=== PATIENT | female | born 1950 | race Hispanic/Latino ===

== ENCOUNTER 2018-06-28 12:36 | Emergency (ER) | payer OTHER ==
--- OUTSIDE RECORDS SUMMARY | 2018-06-28 12:38 | XMS REPORT | Clinical Summary ---
:1950 Author Organization [facility] Address [address] [place] [id number] Care Team Providers Name Role Phone LamoureShalonda ruiz Blank ACADEMIC SUPPORT ASSISTANT-Deja Primary Care Provider Allergies No Known Allergies Current Medications Prescription Sig. Disp. Refills Start End Status Date Date amLODIPine (NORVASC) amlodipine 10 mg Active 10 mg tablet tablet COMBIGAN 0.2-0.5 % 06/22/20 Active ophthalmic solution 18 buPROPion XL 06/21/20 Active (WELLBUTRIN XL) 150 MG 18 24 hr tablet hydroCHLOROthiazide hydrochlorothiazide 25 mg tablet Active (HYDRODIURIL) 25 MG TAKE ONE TABLET BY MOUTH DAILY tablet gabapentin (NEURONTIN) gabapentin 300 mg Active 300 mg capsule capsule furosemide (LASIX) 40 furosemide 40 mg Active mg tablet tablet simvastatin (ZOCOR) 20 simvastatin 20 mg tablet Active MG tablet TAKE 1 TABLET AT BEDTIME irbesartan (AVAPRO) irbesartan 300 mg tablet Active 300 MG tablet TAKE 1 BY MOUTH EVERY DAY metFORMIN XR 06/23/20 Active (GLUCOPHAGE-XR) 500 mg 18 24 hr tablet insulin 70/30 NPH and Novolin 70/30 U-100 Active regular human (NovoLIN Insulin 100 unit/mL 70/30 U-100 Insulin) subcutaneous 100 unit/mL (70-30) suspension injection travoprost (TRAVATAN Travatan Z 0.004 % eye Active Z) 0.004 % drops aspirin (ECOTRIN) 81 Take 81 mg by mouth Active MG enteric coated daily. tablet TURMERIC ROOT EXTRACT Take by mouth. Active ORAL amLODIPine (NORVASC) amlodipine 10 mg tablet 10 mg tablet TAKE 1 BY MOUTH EVERY DAY 2017 amLODIPine (NORVASC) 5 08/19/20 08/22/ Discontinued mg tablet 2017 amoxicillin-pot amoxicillin 875 mg-potassium clavulanate 125 mg tablet clavulanate TAKE ONE TABLET BY MOUTH 2 TIMES DAILY FOR 10 DAYS 2017 (AUGMENTIN) 875-125 mg per tablet benzonatate (TESSALON) benzonatate 200 mg capsule 200 MG capsule TAKE 1 CAPSULE 3 TIMES A DAY NEEDED FOR COUGH 2017 carvedilol (COREG) 06/23/20 12.5 MG tablet 2017 difluprednate Durezol 0.05 % eye drops (DUREZOL) 0.05 % drops INSTILL 1 DROP IN LEFT EYE 4 TIMES A DAY 2017 Active Problems No known active problems Encounters Date Type Specialty Care Team Description 06/24/2018 Office Visit Orthopedic Surgery Jeff Díaz MD Chronic pain of both knees (Primary Dx) after 06/27/2017 Family History Medical History Relation Name Comments Arthritis Mother Diabetes Mother Relation Name Status Comments Mother Social History Tobacco Use Types Packs/Day Years Used Date Never Smoker Smokeless Tobacco: Never Used Alcohol Use Drinks/Week oz/Week Comments Yes Sex Assigned at Date Recorded Not on file Last Filed Vital Signs Vital Sign Reading Time Taken Blood Pressure - - Pulse - - Temperature - - Respiratory Rate - - Oxygen Saturation - - Inhaled Oxygen Concentration - - Weight 118 kg (260 lb) 06/24/2018 1:34 PM CDT Height 162.6 cm (5' 4") 06/24/2018 1:34 PM CDT Body Mass Index 44.63 06/24/2018 1:34 PM CDT Plan of Treatment Health Maintenance Due Date Last Done Comments BREAST CANCER SCREENING 2002 COLON CANCER SCREENING 2002 SHINGRIX VACCINE (#1) 2002 ZOSTER VACCINE 2012 PNEUMOCOCCAL POLYSACCHARIDE VACCINE AGE 65 AND OVER 2017 PNEUMOCOCCAL-13 2017 INFLUENZA VACCINE 06/03/2018 Procedures Procedure Name Priority Date/Time Associated Diagnosis Comments XR KNEE 1 OR 2 VW Routine 06/24/2018 1:43 PM Chronic pain of both Results for this BILATERAL CDT knees procedure are in the results section. after 06/27/2017 Results XR Knee 1 Or 2 Vw Bilateral (06/24/2018 1:43 PM) Narrative Performed At Advanced degenerative changes with osteoporosis and medial joint narrowing [facility] and varus more so on the left. Performing Organization Address City/State/Zipcode Phone Number [facility] [address] [place] [address] after 06/27/2017 Insurance Payer Benefit Plan / Group Subscriber ID Type Phone Address MEDICARE MEDICARE PART A AND B xxxxxxxxxx Medicare [place], [place] AETNA AETNA HMO,POS,EPO, MC/EC xxxxxxxxxx HMO [phone] [place] [address]
[2018-06-28] MEDS ORDERED: NA CHLORIDE 0.9% 1,000 ML ONE (14:01)
[2018-06-28 15:51] LABS: Absolute Lymphocytes (CBC) 1.2 K/uL (0.7-4.9); Absolute Monocytes 0.6 K/uL (0.1-1.3); Absolute Neutrophil 5.6 K/uL (1.8-8.0); Basophils % 0.4 % (0-1.3); Eosinophils % 0.4 % (0-4.4); Hematocrit 36.9 % (36.0-45.0); Lymphocytes % 16.5 % (15.3-44.8); MCH 27.3 pg (27.0-35.0); MCV 83.4 fL (80-100); MPV 10.1 fL (7.6-11.3); Monocytes % 8.5 % (3.3-12.3); RBC Red Blood Cell Count 4.42 M/uL (3.86-4.86)
[2018-06-28 16:09] LABS: Albumin 3.6 g/dL (3.4-5.0); Bilirubin Direct 0.3 mg/dL (0-0.2); Potassium 3.2 mmol/L (3.5-5.1)
--- NOTE | 2018-06-28 17:18 | RAD REPORT ---
EXAM DESCRIPTION: CTAbdomen Pelvis W Contrast - 06/28/2018 5:12 pm CLINICAL HISTORY: Abdominal pain. ABD PAIN COMPARISON: None TECHNIQUE: Biphasic CT imaging of the abdomen and pelvis was performed with 100 ml non-ionic IV cont rast. All CT scans are performed using dose optimization technique as appropriate and may include automated exposure control or mA/KV adjustment according to patient size. FINDINGS: The lung bases are clear. Diffuse fatty liver is noted. Cholecystectomy clips are seen. The spleen, pancreas, adrenal glands an d kidneys show no acute or worrisome process. No bowel obstruction, free air, free fluid or abscess. The appendix is normal. No evidence of signi ficant lymphadenopathy. No suspicious bony findings. Small air bubble is seen in the urinary bladder. IMPRESSION: Diffuse fatty liver. Small air bubble is seen in the urinary bladder which could indicate cystitis. Consider correlation w ith urinalysis.
[2018-06-28 17:22] LABS: Urine Bacteria 20-50 /HPF (<20); Urine Culture Reflex Order REFLEXED; Urine RBC <5 /HPF (NONE SEEN)
[2018-06-28 17:23] LABS: Urine Blood NEGATIVE (NEG); Urine Glucose NEGATIVE (NEG); Urine Protein NEGATIVE (NEG); Urine Specific Gravity 1.015 (1.005-1.030)
--- NOTE | 2018-06-28 17:42 | ER ---
Nurse's Notes [facility] Name: Kath Harrison Age: 68 yrs Sex: Female : 1950 Arrival Date: 06/28/2018 Time: 12:39 Bed 24 Private MD: GENNA POSADA Diagnosis: Urinary tract infection, site not specified;Unspecified abdominal pain Presentation: 06/28 13:13 Presenting complaint: Patient states: Reports intermittent epigastric pain that ph radiates to back x 1 month w/ diarrhea and mild nausea, denies vomiting or fever, has had gallbladder removed. Transition of care: patient was not received from another setting of care. Onset of symptoms was June 28, 2018. Risk Assessment: Do you want to hurt yourself or someone else? Patient reports no desire to harm self or others. Initial Sepsis Screen: Does the patient meet any 2 criteria? No. Patient's initial sepsis screen is negative. Does the patient have a suspected source of infection? No. Patient's initial sepsis screen is negative. Care prior to arrival: None. 13:13 Method Of Arrival: Ambulatory ph 13:13 Acuity: ZULEIMA 3 ph Historical: - Allergies: 13:15 No Known Allergies; ph - PMHx: 13:15 Diabetes - IDDM; Hypertension; Hyperlipidemia; ph - PSHx: 13:15 Cholecystectomy; Hysterectomy; ph - Immunization history:: Adult Immunizations up to date. - Social history:: Smoking status: Patient/guardian denies using tobacco, never smoked. - Ebola Screening: : No symptoms or risks identified at this time. Screenin:47 Abuse screen: Denies threats or abuse. Nutritional screening: No deficits noted. tl3 Tuberculosis screening: No symptoms or risk factors identified. Fall Risk None identified. Assessment: 13:47 General: Appears uncomfortable, obese, well groomed, well developed, well nourished, tl3 Behavior is calm, cooperative, appropriate for age. Pain: Complains of pain in epigastric area, right upper quadrant and left upper quadrant. Neuro: Level of Consciousness is awake, alert, obeys commands, Oriented to person, place, time, situation, Appropriate for age. Cardiovascular: Heart tones S1 S2 present Patient's skin is warm and dry. Respiratory: Airway is patent Respiratory effort is even, unlabored, Respiratory pattern is regular, symmetrical, Breath sounds are clear bilaterally. GI: Abdomen is round Bowel sounds present X 4 quads. Abdomen is tender to palpation in left upper quadrant. : Reports urinary frequency, since 2 days. EENT: No signs and/or symptoms were reported regarding the EENT system. Derm: Skin is fragile, is thin, to bilateral lower legs. Musculoskeletal: No signs and/or symptoms reported regarding the musculoskeletal system. 16:34 Reassessment: Patient appears in no apparent distress at this time. No changes from tl3 previously documented assessment. Patient and/or family updated on plan of care and expected duration. Pain level reassessed. Patient is alert, oriented x 3, equal unlabored respirations, skin warm/dry/pink. pt has been unable to provide a urine speciman. 18:32 Reassessment: Patient appears in no apparent distress at this time. No changes from tl3 previously documented assessment. Patient and/or family updated on plan of care and expected duration. Pain level reassessed. Patient is alert, oriented x 3, equal unlabored respirations, skin warm/dry/pink. Vital Signs: 13:14 BP 131 / 67; Pulse 81; Resp 18; Temp 97.5; Pulse Ox 96% on R/A; Weight 117.93 kg; ph Height 5 ft. 4 in. (162.56 cm); Pain 6/10; 16:34 BP 140 / 55; Pulse 74; Resp 18; Pulse Ox 97% on R/A; tl3 18:57 BP 140 / 55; Pulse 74; Resp 18; Pulse Ox 98% on R/A; tl3 13:14 Body Mass Index 44.63 (117.93 kg, 162.56 cm) ph ED Course: 12:39 Patient arrived in ED. sb2 12:39 GENNA POSADA is Private Physician. sb2 13:14 Triage completed. ph 13:15 Arm band placed on Patient placed in waiting room, Patient notified of wait time. ph 13:32 Julian Saravia NP is PHCP. pm1 13:32 Stone Hargrove MD is Attending Physician. pm1 13:40 Sherley Angeles, JUD is Primary Nurse. tl3 13:47 Patient has correct armband on for positive identification. Bed in low position. Adult tl3 w/ patient. 13:47 No provider procedures requiring assistance completed. tl3 15:40 Initial lab(s) drawn, by me, sent to lab. using 23G needle, site covered with 2x2 gauze sv and tape. 16:34 Straight cath inserted, using sterile technique, 16 Fr. Returned clear yellow urine. tl3 Patient tolerated well. 400 ml urine collected. 16:[address] tl3 17:12 CT Abd/Pelvis - W/Contrast In Process Unspecified. EDMS 17:42 GENNA POSADA is Referral Physician. pm1 18:57 IV discontinued, intact, bleeding controlled, No redness/swelling at site. Pressure tl3 dressing applied. Administered Medications: 14:39 Drug: NS 0.9% 1000 ml Route: IV; Rate: 1000 ml; Site: right antecubital; Delivery: tl3 Primary tubing; 16:38 Follow up: IV Status: Completed infusion; IV Intake: 1000ml tl3 18:31 Not Given (IV infiltrated, provider notified, new orders received): Rocephin 1 grams IV tl3 at calculated rate once; Given slow IV push per pharmacy instructions 18:32 Drug: Rocephin (cefTRIAXone) 1 grams Route: IM; Site: right gluteus; tl3 19:04 Follow up: Response: No adverse reaction tl3 Intake: 16:38 IV: 1000ml; Total: 1000ml. tl3 Outcome: 17:42 Discharge ordered by . pm1 18:57 Discharged to home ambulatory. tl3 18:57 Condition: good 18:57 Discharge instructions given to patient, family, Instructed on discharge instructions, follow up and referral plans. medication usage, Demonstrated understanding of instructions, follow-up care, medications, Prescriptions given X 1. 19:06 Patient left the ED. tl3 Addendum: 07/03/2018 10:49 Addendum: Culture Results: Positive urine culture. No further action required. Bacteria s s sensitive to prescribed antibiotic. Signatures: Dispatcher [employer] [facility] Julia Rick RN RN sv Smirch, Shelby, RN RN ss Hall, Patricia, RN RN ph Marinas, Patrick, JONATHAN ANNEALING TORCH OPERATOR pm1 Stephanie Mckeon sb2 Sherley Angeles RN RN tl3
--- NOTE | 2018-06-28 17:42 | EDPHYS ---
Physician Documentation [facility] Name: Kath Harrison Age: 68 yrs Sex: Female : 1950 Arrival Date: 06/28/2018 Time: 12:39 Bed 24 Private MD: GENNA POSADA ED Physician Stone Hargrove HPI: 06/28 15:00 This 68 yrs old Female presents to ER via Ambulatory with complaints of pm1 Abdominal Pain. 15:00 The patient presents with right flank pain and suprapubic area. pm1 15:00 Onset: The symptoms/episode began/occurred 3 day(s) ago. The symptoms do not radiate. pm1 Associated signs and symptoms: Pertinent positives: dysuria, nausea, Pertinent negatives: chest pain, constipation, fever, shortness of breath. The symptoms are described as achy. Modifying factors: The symptoms are alleviated by nothing, the symptoms are aggravated by nothing. Severity of pain: in the emergency department the pain is actually worse. The patient has not recently seen a physician. Patient with diarrhea about 1 week ago and that lasted about 2 days. # days ago with onset of urinary frequency, suprapubic pain, and right flank pain. No fevers. Historical: - Allergies: 13:15 No Known Allergies; ph - PMHx: 13:15 Diabetes - IDDM; Hypertension; Hyperlipidemia; ph - PSHx: 13:15 Cholecystectomy; Hysterectomy; ph - Immunization history:: Adult Immunizations up to date. - Social history:: Smoking status: Patient/guardian denies using tobacco, never smoked. - Ebola Screening: : No symptoms or risks identified at this time. ROS: 15:00 Constitutional: Negative for fever, chills, and weight loss, Eyes: Negative for injury, pm1 pain, redness, and discharge, ENT: Negative for injury, pain, and discharge, Neck: Negative for injury, pain, and swelling, Cardiovascular: Negative for chest pain, palpitations, and edema, Respiratory: Negative for shortness of breath, cough, wheezing, and pleuritic chest pain. 15:00 MS/Extremity: Negative for injury and deformity, Skin: Negative for injury, rash, and discoloration, Neuro: Negative for headache, weakness, numbness, tingling, and seizure. 15:00 Abdomen/GI: Positive for abdominal pain, nausea, of the suprapubic area, Negative for vomiting, diarrhea, constipation. 15:00 Back: Positive for flank pain, on the right. 15:00 : Positive for urinary frequency, small amounts. Exam: 15:00 Constitutional: This is a well developed, well nourished patient who is awake, alert, pm1 and in no acute distress. Head/Face: Normocephalic, atraumatic. Eyes: Pupils equal round and reactive to light, extra-ocular motions intact. Lids and lashes normal. Conjunctiva and sclera are non-icteric and not injected. Cornea within normal limits. Periorbital areas with no swelling, redness, or edema. ENT: Nares patent. No nasal discharge, no septal abnormalities noted. Tympanic membranes are normal and external auditory canals are clear. Oropharynx with no redness, swelling, or masses, exudates, or evidence of obstruction, uvula midline. Mucous membranes moist. Neck: Trachea midline, no thyromegaly or masses palpated, and no cervical lymphadenopathy. Supple, full range of motion without nuchal rigidity, or vertebral point tenderness. No Meningismus. Chest/axilla: Normal chest wall appearance and motion. Nontender with no deformity. No lesions are appreciated. Cardiovascular: Regular rate and rhythm with a normal S1 and S2. No gallops, murmurs, or rubs. Normal PMI, no JVD. No pulse deficits. Respiratory: Lungs have equal breath sounds bilaterally, clear to auscultation and percussion. No rales, rhonchi or wheezes noted. No increased work of breathing, no retractions or nasal flaring. 15:00 Back: No spinal tenderness. No costovertebral tenderness. Full range of motion. Skin: Warm, dry with normal turgor. Normal color with no rashes, no lesions, and no evidence of cellulitis. MS/ Extremity: Pulses equal, no cyanosis. Neurovascular intact. Full, normal range of motion. 15:00 Abdomen/GI: Inspection: abdomen appears normal, Bowel sounds: normal, Palpation: soft, mild abdominal tenderness, in the suprapubic area, mass, is not appreciated, rebound tenderness, is not appreciated, Indicators: McBurney's point is not tender, Saavedra's sign is negative. 15:00 Neuro: Orientation: is normal, Motor: is normal, moves all fours, strength is normal, strength is 5/5 in all extremities, Sensation: is normal, no obvious gross deficits. Vital Signs: 13:14 BP 131 / 67; Pulse 81; Resp 18; Temp 97.5; Pulse Ox 96% on R/A; Weight 117.93 kg; ph Height 5 ft. 4 in. (162.56 cm); Pain 6/10; 16:34 BP 140 / 55; Pulse 74; Resp 18; Pulse Ox 97% on R/A; tl3 18:57 BP 140 / 55; Pulse 74; Resp 18; Pulse Ox 98% on R/A; tl3 13:14 Body Mass Index 44.63 (117.93 kg, 162.56 cm) ph MDM: 13:33 Patient medically screened. pm1 17:41 Data reviewed: vital signs. Data interpreted: Pulse oximetry: on room air is 97 %. pm1 Interpretation: normal. Counseling: I had a detailed discussion with the patient and/or guardian regarding: the historical points, exam findings, and any diagnostic results supporting the discharge/admit diagnosis, lab results, radiology results, the need for outpatient follow up, to return to the emergency department if symptoms worsen or persist or if there are any questions or concerns that arise at home. 06/28 13:45 Order name: Basic Metabolic Panel; Complete Time: 16:10 pm1 06/28 13:45 Order name: CBC with Diff; Complete Time: 15:57 pm06/28 13:45 Order name: Creatinine for Radiology; Complete Time: 16:10 pm06/28 13:45 Order name: Hepatic Function; Complete Time: 16:10 pm06/28 13:45 Order name: Lipase; Complete Time: 16:10 pm06/28 13:45 Order name: Urine Microscopic Only; Complete Time: 17:39 pm06/28 13:45 Order name: IV Saline Lock; Complete Time: 14:40 pm06/28 13:45 Order name: CT Abd/Pelvis - W/Contrast; Complete Time: 17:21 pm06/28 16:36 Order name: Urine Dipstick--Ancillary (enter results); Complete Time: 17:39 bd 06/28 17:24 Order name: Urine Culture EDMS Administered Medications: 14:39 Drug: NS 0.9% 1000 ml Route: IV; Rate: 1000 ml; Site: right antecubital; Delivery: tl3 Primary tubing; 16:38 Follow up: IV Status: Completed infusion; IV Intake: 1000ml tl3 18:31 Not Given (IV infiltrated, provider notified, new orders received): Rocephin 1 grams IV tl3 at calculated rate once; Given slow IV push per pharmacy instructions 18:32 Drug: Rocephin (cefTRIAXone) 1 grams Route: IM; Site: right gluteus; tl3 19:04 Follow up: Response: No adverse reaction tl3 Disposition: 06/29 06:52 Co-signature as Attending Physician, Stone Hargrove MD I agree with the assessment and clay plan of care. Disposition: 06/28/18 17:42 Discharged to Home. Impression: Urinary tract infection, site not specified, Unspecified abdominal pain. - Condition is Stable. - Discharge Instructions: Abdominal Pain, Adult, Urinary Tract Infection, Adult. - Prescriptions for Bactrim DS 800- 160 mg Oral Tablet - take 1 tablet by ORAL route every 12 hours for 10 days; 20 tablet. Tylenol- Codeine #3 300-30 mg Oral Tablet - take 2 tablets by ORAL route every 6 hours As needed; 20 tablet. - Medication Reconciliation Form, Thank You Letter, Antibiotic Education, Prescription Opioid Use form. - Follow up: Emergency Department; When: As needed; Reason: Worsening of condition. Follow up: GENNA POSADA; When: 2 - 3 days; Reason: Recheck today's complaints, Continuance of care, Re-evaluation by your physician. - Problem is new. - Symptoms have improved. Signatures: Dispatcher [employer] Stone Maxwell MD MD cha Hall, Patricia, RN RN Julian Magallanes, INSIDE SALES TERRITORY MANAGER INSIDE SALES TERRITORY MANAGER pm1 Sherley Angeles RN RN tl3 Corrections: (The following items were deleted from the chart) 06/28 17:42 17:42 06/28/2018 17:42 Discharged to Home. Impression: Urinary tract infection, site pm1 not specified. Condition is Stable. Forms are Medication Reconciliation Form, Thank You Letter, Antibiotic Education, Prescription Opioid Use. Follow up: Emergency Department; When: As needed; Reason: Worsening of condition. Follow up: GENNA POSADA; When: 2 - 3 days; Reason: Recheck today's complaints, Continuance of care, Re-evaluation by your physician. Problem is new. Symptoms have improved. pm1 19:06 17:42 06/28/2018 17:42 Discharged to Home. Impression: Urinary tract infection, site tl3 not specified; Unspecified abdominal pain. Condition is Stable. Forms are Medication Reconciliation Form, Thank You Letter, Antibiotic Education, Prescription Opioid Use. Follow up: Emergency Department; When: As needed; Reason: Worsening of condition. Follow up: GENNA POSADA; When: 2 - 3 days; Reason: Recheck today's complaints, Continuance of care, Re-evaluation by your physician. Problem is new. Symptoms have improved. pm1
[2018-06-28] MEDS ORDERED: CEFTRIAXONE/SWI 1gm 1 GM/10 ML SYR ONE (18:25)
[2018-06-28] MEDS ORDERED: LIDOCAINE 1% MPF 2 ML AMPULE ONE (18:30)
[2018-06-28] MEDS ORDERED: CEFTRIAXONE 1000 MG/VIAL ONE (18:30)
== END 2018-06-28 19:06 | disposition home or self-care (01) ==
LOC: ER 12:36
DX: N39.0 Urinary tract infection, site not specified (principal); R10.9 Unspecified abdominal pain; E11.9 Type 2 diabetes mellitus without complications; Z79.4 Long term (current) use of insulin; I10 Essential (primary) hypertension; E78.5 Hyperlipidemia, unspecified
CPT/HCPCS: 36415; 51702; 74177; 80048; 80076; 83690; 85025; 87077; 87086; 87088; 87186; 96360; 96361; 96372; 99284; J0696; J2001; J7030; Q9967; 81003; 81015

== ENCOUNTER 2019-08-17 14:25 | Emergency (ER) | payer OTHER ==
[2019-08-17] MEDS ORDERED: ACETAMINOPHEN 325 MG TABLET ONE (14:48)
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
[2019-08-17 16:54] VITALS: BP 139/51; TEMP 97.4; O2SAT 98
== END 2019-08-17 15:53 | disposition home or self-care (01) ==
LOC: ER 14:25
DX: S39.012A Strain of muscle, fascia and tendon of lower back, initial encounter (principal); S29.012A Strain of muscle and tendon of back wall of thorax, initial encounter; V49.40XA Driver injured in collision with unspecified motor vehicles in traffic accident, initial encounter; I10 Essential (primary) hypertension; E11.9 Type 2 diabetes mellitus without complications; E78.5 Hyperlipidemia, unspecified; Z79.82 Long term (current) use of aspirin; Z79.4 Long term (current) use of insulin
CPT/HCPCS: 70450; 72125; 99284

== ENCOUNTER 2020-07-31 11:25 | Emergency (ER) | payer OTHER ==
--- OUTSIDE RECORDS SUMMARY | 2020-07-31 11:28 | XMS REPORT | Clinical Summary ---
:1950 Author Organization [facility] Address [address] [place] [address] Care Team Providers Name Role Phone Elaine Sandoval MD Primary Care Provider [phone] Allergies No Known Allergies Medications Medication Sig Dispensed Refills Start End Date Status Date turmeric-turmeric root as directed 0 Active extract 450-50 mg Cap TRAVATAN Z 0.004 % Drop 0 Active ophthalmic drops 9 simvastatin (ZOCOR) 20 0 Active MG tablet 9 metFORMIN 0 Active (GLUCOPHAGE-XR) 500 MG 9 24 hr tablet insulin 70/30, insulin as directed 0 Active NPH-insulin regular, 8 (NOVOLIN 70/30 U-100 INSULIN) 100 unit/mL (70-30) injection hydroCHLOROthiazide 0 Active (HYDRODIURIL) 25 MG 9 tablet furosemide (LASIX) 40 0 Active MG tablet 9 diclofenac 1 % Gel 0 A ctive 9 COMBIGAN 0.2-0.5 % 0 A ctive ophthalmic solution 9 aspirin (ASPIR-81) 81 1 tablet 0 Active MG EC tablet amLODIPine (NORVASC) 10 0 Active MG tablet 9 gabapentin (NEURONTIN) gabapentin 300 0 Active 300 MG capsule mg capsule losartan (COZAAR) 100 TAKE 1 TABLET 3 Active MG tablet BY MOUTH ONCE 9 DAILY FOR HIGH BLOOD PRESSURE FOR 30 DAYS BD VEO INSULIN SYRINGE USE 4 Active UF 1 mL 31 gauge x DIRECTED TO BE 0 " Syrg USED TWICE A DAY WITH NOVOLIN 70 30 escitalopram oxalate TAKE 1 TABLET 0 Active (LEXAPRO) 10 MG tablet BY MOUTH ONCE 9 DAILY FOR DEPRESSION AND FOR ANXIETY FOR 90 DAYS XELPROS 0.005 % dpem INSTILL 1 DROP 1 Active DAILY IN EACH 0 EYE AT BEDTIME meloxicam (MOBIC) 15 MG TAKE 1 2 TO 1 2 Active tablet (ONE HALF TO 0 ONE) TABLET BY MOUTH ONCE DAILY NEEDED WITH FOOD FOR PAIN FOR 90 DAYS meloxicam (MOBIC) 15 MG 0 Discontinued tablet 9 20 irbesartan (AVAPRO) 300 0 Discontinued MG tablet 9 20 buPROPion (WELLBUTRIN 0 11/26/19 Discontinued XL) 150 MG 24 hr tablet 9 20 diclofenac 1 % Gel Apply 2 g 1 Tube 2 11/26/19 D iscontinued topically 4 9 20 (four) times daily. PREMARIN 0.625 mg/gram APPLY 1 0 Discontinued vaginal cream VAGINALLY 9 20 TWICE A WEEK DIRECTED FOR 90 DAYS miscellaneous medical Bilateral 1 each 0 11/26/19 Discontinued supply MiscIndications: unloading 9 20 Primary osteoarthritis brace.. of left knee, Primary osteoarthritis of right knee Hospital, Clinic, or Ordered Dose Route Frequency Start Date End D ate Status Other Facility Administered Medication bupivacaine 0.25 % 5 mg IAtc Once 04/20/2019 Active (2.5 mg/mL) injection 5 mgIndications: Bilateral primary osteoarthritis of knee dexamethasone 8 mg IAtc Once 04/20/2019 05/01/2020 Disc ontinued (DECADRON) injection 8 mgIndications: Bilateral primary osteoarthritis of knee, Essential hypertension, Type 2 diabetes mellitus with other neurologic complication, with long-term current use of insulin (HCC) lidocaine (XYLOCAINE) 2 mL IAtc Once 04/20/2019 020 Discontinued injection 1%Indications: Bilateral primary osteoarthritis of knee dexamethasone 5 mg IAtc Once 2019 05/01/2020 Disc ontinued (DECADRON) injection 5 mgIndications: Primary osteoarthritis of both knees, Trigger finger, right ring finger lidocaine (XYLOCAINE) 3 mL IAtc Once 2019 020 Discontinued injection 2%Indications: Primary osteoarthritis of both knees, Trigger finger, right ring finger bupivacaine 0.25 % 5.625 mg IAtc Once 2019 05/01/2020 Discontinued (2.5 mg/mL) injection 5.625 mgIndications: Primary osteoarthritis of both knees, Trigger finger, right ring finger dexamethasone 4 mg IAtc Once 11/26/2019 11/26/2019 Ende d (DECADRON) injection 4 mgIndications: Primary osteoarthritis of left knee lidocaine (XYLOCAINE) 1 mL IAtc Once 11/26/2019 020 Ended injection 1%Indications: Primary osteoarthritis of left knee bupivacaine 0.25 % 2.5 mg IAtc Once 11/26/2019 11/26/2019 Ended (2.5 mg/mL) injection 2.5 mgIndications: Primary osteoarthritis of left knee dexamethasone 4 mg IAtc Once 11/26/2019 11/26/2019 Ende d (DECADRON) injection 4 mgIndications: Primary osteoarthritis of right knee lidocaine (XYLOCAINE) 1 mL IAtc Once 11/26/2019 020 Ended injection 1%Indications: Primary osteoarthritis of right knee bupivacaine 0.25 % 2.5 mg IAtc Once 11/26/2019 11/26/2019 Ended (2.5 mg/mL) injection 2.5 mgIndications: Primary osteoarthritis of right knee lidocaine (XYLOCAINE) 1 mL IAtc Once 12/27/2019 020 Ended injection 1%Indications: Primary osteoarthritis of left knee bupivacaine 0.25 % 2.5 mg IAtc Once 12/27/2019 12/27/2019 Ended (2.5 mg/mL) injection 2.5 mgIndications: Primary osteoarthritis of left knee triamcinolone 40 mg IAtc Once 12/27/2019 12/27/2019 Ende d acetonide (KENALOG-40) injection 40 mgIndications: Primary osteoarthritis of left knee lidocaine (XYLOCAINE) 1 mL IAtc Once 12/27/2019 020 Ended injection 1%Indications: Primary osteoarthritis of right knee bupivacaine 0.25 % 2.5 mg IAtc Once 12/27/2019 12/27/2019 Ended (2.5 mg/mL) injection 2.5 mgIndications: Primary osteoarthritis of right knee triamcinolone 40 mg IAtc Once 12/27/2019 12/27/2019 Ende d acetonide (KENALOG-40) injection 40 mgIndications: Primary osteoarthritis of right knee dexamethasone 4 mg IAtc Once 05/01/2020 05/02/2020 Ende d (DECADRON) injection 4 mgIndications: Primary osteoarthritis of both knees lidocaine (XYLOCAINE) 1 mL IAtc Once 05/01/2020 020 Ended injection 1%Indications: Primary osteoarthritis of both knees bupivacaine 0.25 % 2.5 mg IAtc Once 05/01/2020 05/02/2020 Ended (2.5 mg/mL) injection 2.5 mgIndications: Primary osteoarthritis of both knees dexamethasone 4 mg IAtc Once 05/01/2020 05/02/2020 Ende d (DECADRON) injection 4 mgIndications: Primary osteoarthritis of both knees lidocaine (XYLOCAINE) 1 mL IAtc Once 05/01/2020 020 Ended injection 1%Indications: Primary osteoarthritis of both knees bupivacaine 0.25 % 2.5 mg IAtc Once 05/01/2020 05/02/2020 Ended (2.5 mg/mL) injection 2.5 mgIndications: Primary osteoarthritis of both knees Active Problems Problem Noted Date Lumbar radiculopathy 05/01/2020 Primary osteoarthritis of both knees 05/01/2020 Skin ulcer of ankle, unspecified laterality, with unsp ecified severity 11/27/2019 Morbid obesity with body mass index of 40.0-49.9 05/09 Reactive depression 2019 Lymphedema of both lower extremities 2019 Varicose veins of both lower extremities with pain 05/2019 Essential hypertension 04/20/2019 Type 1 diabetes mellitus with neurological manifestati ons 04/20/2019 Encounters Date Type Specialty Care Team Description 05/01/2020 Office Visit Orthopedic Surgery Sandesara, Lumbar ra diculopathy; Kim, [employer] Primary osteoar thritis of both knees 12/27/2019 Office Visit Orthopedic Surgery Robert Coronado Primary o steoarthritis of left knee (Primary Dx); Gelacio Primary osteoar thritis of right knee; Type 1 diabetes mellitus with diabetic neuropathy (HCC); Morbid obesity with body mass index of 40.0-49.9 (HCC) 11/26/2019 Office Visit Orthopedic Robert Buckley Primary o steoarthritis of left knee (Primary Dx); Gelacio Primary osteoar thritis of right knee; Obesity, Class III, BMI 40-49.9 (morbid obesity) (HCC); Reactive depres samson; Skin ulcer of a nkle, unspecified laterality, with unspecified severity (HCC) after 07/31/2019 Family History Medical History Relation Name Comments Diabetes Father Hypertension Mother Peripheral vascular disease Mother Vasculitis Mother Relation Name Status Comments Father Mother Social History Tobacco Use Types Packs/Day Years Used Date Never Smoker Smokeless Tobacco: Never Used Alcohol Use Drinks/Week oz/Week Comments No Alcohol Habits Answer Date Recorded How often do you have a drink containing alcohol? Never 03/08/2019 How many drinks containing alcohol do you have on a typical Not asked day when you are drinking? How often do you have six or more drinks on one occasion? No t asked Sex Assigned at Date Recorded Not on file Job Start Date Occupation Industry Not on file Not on file Not on file Travel History Travel Start Travel End No recent travel history available. Last Filed Vital Signs Vital Sign Reading Time Taken Blood Pressure 139/80 05/01/2020 12:23 PM CDT Pulse 86 05/01/2020 11:24 AM CDT Temperature 36.6 C (97.9 F) 05/01/2020 11:24 AM CDT Respiratory Rate - - Oxygen Saturation - - Inhaled Oxygen Concentration - - Weight 118.8 kg (262 lb) 05/01/2020 11:24 AM CDT Height 162.6 cm (5' 4") 05/01/2020 11:24 AM CDT Body Mass Index 44.97 05/01/2020 11:24 AM CDT Plan of Treatment Health Maintenance Due Date Last Done Comments BREAST CANCER SCREENING 1950 COLON CANCER SCREENING COLONOSCOPY 1950 DIABETIC EYE EXAM 1962 DIABETIC FOOT EXAM 1962 URINE MICROALBUMIN 1962 MEDICARE ANNUAL WELLNESS (YEAR 2 or FIRST YEAR if no 11/04/2015 IPPE) PNEUMOCOCCAL 65+ LOW/MEDIUM RISK (1 of 2 - PCV13) 2017 HEMOGLOBIN A1C 04/20/2019 INFLUENZA VACCINE (#1) 2020 09/01/2019 Results Not on fileafter 07/31/2019 Insurance Payer Benefit Plan / Group Subscriber ID Type Phone A ddress MEDICARE MEDICARE A B xxxxxxxxxxx Medicare
--- OUTSIDE RECORDS SUMMARY | 2020-07-31 11:28 | XMS REPORT | Clinical Summary ---
:1950 Author Organization [facility] Address [address] [place] [address] Care Team Providers Name Role Phone MD Lori Primary Care Provider Allergies No Known Active Allergies Medications Medication Sig Dispensed Refills Start End Status Date Date amLODIPine (NORVASC) 10 amlodipine 10 mg 0 Active mg tablet tablet COMBIGAN 0.2-0.5 % 0 06/22/20 A ctive ophthalmic solution 18 buPROPion XL 0 06/21/20 Active (WELLBUTRIN XL) 150 MG 18 24 hr tablet hydroCHLOROthiazide hydrochlorothiazide 25 mg tablet 0 Active (HYDRODIURIL) 25 MG TAKE ONE TABLET BY MOUTH DAILY tablet gabapentin (NEURONTIN) gabapentin 300 mg 0 Active 300 mg capsule capsule furosemide (LASIX) 40 furosemide 40 mg 0 Active mg tablet tablet simvastatin (ZOCOR) 20 simvastatin 20 mg tablet 0 Active MG tablet TAKE 1 TABLET AT BEDTIME irbesartan (AVAPRO) 300 irbesartan 300 mg tablet 0 Active MG tablet TAKE 1 BY MOUTH EVERY DAY metFORMIN XR 0 06/23/20 Active (GLUCOPHAGE-XR) 500 mg 18 24 hr tablet insulin 70/30 NPH and Novolin 70/30 U-100 0 Active regular human (NovoLIN Insulin 100 unit/mL 70/30 U-100 Insulin) subcutaneous 100 unit/mL (70-30) suspension injection travoprost (TRAVATAN Z) Travatan Z 0.004 % eye 0 Active 0.004 % drops aspirin (ECOTRIN) 81 MG Take 81 mg by mouth 0 Active enteric coated tablet daily. TURMERIC ROOT EXTRACT Take by mouth. 0 Active ORAL Active Problems No known active problems Family History Medical History Relation Name Comments Arthritis Mother Diabetes Mother Relation Name Status Comments Mother Social History Tobacco Use Types Packs/Day Years Used Date Never Smoker Smokeless Tobacco: Never Used Alcohol Use Drinks/Week oz/Week Comments Yes Sex Assigned at Date Recorded Not on file Last Filed Vital Signs Not on file Plan of Treatment Health Maintenance Due Date Last Done Comments BREAST CANCER SCREENING 2002 COLONOSCOPY SCREENING 2002 SHINGLES VACCINES (#1) 2002 65+ PNEUMOCOCCAL VACCINE (1 of 1 - PPSV23) 2017 INFLUENZA VACCINE 06/03/2020 Results Not on fileafter 07/31/2019 Insurance Payer Benefit Plan / Subscriber ID Effective Dates Phone Addre ss Type Group [employer] [id number] [facility] Advance Directives For more information, please contact: [phone] Type Date Recorded 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
--- OUTSIDE RECORDS SUMMARY | 2020-07-31 11:29 | XMS REPORT ---
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 Problem Melena K92.1 Active Problem Seborrheic dermatitis L21.9 Active Problem Urge incontinence of urine N39.41 A ctive Problem Other chronic pain G89.29 Active Problem Pain in left knee M25.562 Active Problem Hyperlipidemia, unspecified E78.5 Active hyperlipidemia type Problem Depression with anxiety F41.8 Acti ve Problem Chronic pain syndrome G89.4 Active Problem Pain in right knee M25.561 Active Problem Rash and nonspecific skin eruption R21 Active Problem Shortness of breath R06.02 Active Problem Morbid obesity E66.01 Active Problem Elevated TSH R79.89 Active Problem Loss of taste R43.2 Active Problem Essential hypertension I10 Activ e Problem Low back pain M54.5 Active Problem Vitamin D deficiency E55.9 Active Problem Pain of right heel M79.671 Active Assessment Elevated TSH R94.6 Active Problem Dietary surveillance and Z71.3 Act hans counseling Problem Chest pain, unspecified type R07.9 Active Problem Vaginal itching N89.8 Active Problem Peripheral edema R60.9 Active Problem Open-angle glaucoma of both eyes, H40.10X0 Active unspecified glaucoma stage, unspecified open-angle glaucoma type Problem Pain in right foot M79.671 Active Problem Depression F32.9 Active Problem Polyarthralgia M25.50 Active Problem Hyperuricemia E79.0 Active Problem Uncontrolled type 2 diabetes E11.65 Active mellitus with hyperglycemia Problem Hypersomnia G47.10 Active Problem Pain of left foot M79.672 Active Problem Apnea R06.81 Active Problem Respiratory symptoms R09.89 Active Problem Snoring R06.83 Active Problem Overactive bladder N32.81 Active Problem BMI 45.0-49.9, adult Z68.42 Active Problem Grief reaction F43.21 Active Medications Medication Code Code Instructions Start End Status Dosage System Date Date Vitamin D [facility] 33341277122 1.25 MG (May 23Aug 21, Active 1 capsule (Ergocalciferol [place]) Orally once 2019 2019 ) a week for 12 weeks Allopurinol [facility] 45989589077 100 MG Orally May 23Sep 20, Active 1 tablet Once a day 2019 2019 Results No Known Results Summary Purpose eClinicalWorks Submission
--- OUTSIDE RECORDS SUMMARY | 2020-07-31 11:29 | XMS REPORT ---
:1950 Author Organization [facility] Care Team Providers Name Role Phone Elaine Sandoval Provider Role Unavailable Allergies, Adverse Reactions, Alerts Substance Reaction Event Type N.K.D.A. Info Not Available Non Drug Allergy Problems Problem Type Condition Code Onset Dates [...] Hyperlipidemia, unspecified E78.5 Active hyperlipidemia type Problem Pain in right knee M25.561 Active Problem Essential hypertension I10 Activ e Problem Low back pain M54.5 Active Problem Pain of right heel M79.671 Active Problem Pain in right foot M79.671 Active Problem Polyarthralgia M25.50 Active Problem Uncontrolled type 2 diabetes E11.65 Active mellitus with hyperglycemia Problem Pain of left foot M79.672 Active Problem Respiratory symptoms R09.89 Active Problem Overactive bladder N32.81 Active Problem BMI 45.0-49.9, adult Z68.42 Active Problem Grief reaction F43.21 Active Assessment Overactive bladder N32.81 Active Assessment Polyarthralgia M25.50 Active Assessment Chronic pain syndrome G89.4 Active Assessment Depression F32.9 Active Assessment BMI 45.0-49.9, adult Z68.42 Active Assessment Morbid obesity E66.01 Active Assessment Hyperlipidemia, unspecified E78.5 Active hyperlipidemia type Assessment Uncontrolled type 2 diabetes E11.65 Active mellitus with hyperglycemia Problem Depression with anxiety F41.8 Acti ve Assessment Dietary surveillance and Z71.3 Act hans counseling Problem Chronic pain syndrome G89.4 Active Problem Rash and nonspecific skin eruption R21 Active Problem Shortness of breath R06.02 Active Problem Morbid obesity E66.01 Active Problem Elevated TSH R79.89 Active Problem Loss of taste R43.2 Active Problem Vitamin D deficiency E55.9 Active Problem Dietary surveillance and Z71.3 Act hans counseling Assessment Essential hypertension I10 Activ e Problem Chest pain, unspecified type R07.9 Active Assessment Peripheral edema R60.9 Active Problem Vaginal itching N89.8 Active Assessment Vaginal itching N89.8 Active Problem Peripheral edema R60.9 Active Assessment Rash and nonspecific skin eruption R21 Active Problem Open-angle glaucoma of both eyes, H40.10X0 Active unspecified glaucoma stage, unspecified open-angle glaucoma type Problem Depression F32.9 Active Problem Hyperuricemia E79.0 Active Problem Hypersomnia G47.10 Active Problem Apnea R06.81 Active Problem Snoring R06.83 Active Medications Medication Code Code Instructions Start End Status Dosage System Date Date Amlodipine Besylate ND 82232460058 10 MG Orally Act hans 1 tablet Once a day Insulin Syringes NDC 0 U-100 1 ML Dec Active as d irected (Disposable) subcutaneous 13, as directed 2017 with Novolin 70/30 BID Lancets ND 62719284692 - as directed Dec Active as dir ected Test BS three 13, (dispense times daily 2017 lancets formulary to insurance) Travatan Z NDC 98235650674 0.004 % Active 1 drop in to Ophthalmic affected eye Once a day in the evening Lancets ND 33523072518 - as directed Nov Active as dir ected Test BS three 10, (dispense times daily 2018 lancets formulary to insurance) Novolin 70/30 NDC 95337945754 (70-30) 100 Active as directed UNIT/ML Subcutaneous 50 units Twice daily Ketoconazole ND 69440534575 2 % May Active 1 Externally 16, 15, application Once a day 2019 2019 to affected area(s) Premarin NDC 28710809008 0.625 MG/GM Active as dire cted Vaginal twice weekly Blood Glucose Monitor NDC 0 as directed Dec Activ e as directed Test BS three 13, (DISPENSE times daily 2017 BLOOD GLUCOSE MONITOR FORMULARY TO INSURANCE) Hydrochlorothiazide NDC 93144870998 25 MG Orally Act hans 1 tablet Once a day Blood Glucose Monitor NDC 0 as directed Nov Activ e as directed Test BS three 10, (DISPENSE times daily 2018 BLOOD GLUCOSE MONITOR FORMULARY TO INSURANCE) Blood Glucose Test NDC 0 as directed Nov Active as directed Strip Test BS three 10, (DISPENSE times daily 2018 BLOOD GLUCOSE TEST STRIPS FORMULARY TO INSURANCE) Metformin HCl [facility] 06599085166 500 MG Orally Active 2 tablet Twice a day with meals Fluconazole ND 81799081764 150 MG Orally May Active 1 tablet Once daily x3 16, 19, days 2019 2019 Escitalopram Oxalate ND 41270597834 10 MG Orally Ac tive 1 tablet Once a day for depression and anxiety Turmeric [facility] 15457624189 500 MG Orally Active as di rected Meloxicam [facility] 65678693364 15 MG Active TAKE 1/2 T O 1 (ONE-HALF TO ONE) TABLET BY MOUTH ONCE DAILY NEEDED FOR PAIN Mobic ND 14967759086 15 MG Orally February Active 11/04 to 1 Once a day , tablet as 2020 needed for pain; take with food or milk Aspir-81 [facility] 69109069786 81 MG Orally Active 1 tabl et Once a day Gabapentin ND 70326791195 300 MG Orally Active 1 c apsule Twice a day as needed for pain Blood Glucose Test NDC 0 as directed Dec Active as directed Strip Test BS three 13, (DISPENSE times daily 2017 BLOOD GLUCOSE TEST STRIPS FORMULARY TO INSURANCE) Combigan [facility] 73036803326 0.2-0.5 % Active 1 drop in to Ophthalmic affected eye Twice a day Zocor [facility] 40978217283 20 MG Orally Active 1 table t in Once a day the evening Metformin HCl ND 48035409169 500 MG Orally Active 2 tablet Twice a day with meals ProAir HFA [facility] 18717141753 108 (90 Base) Jun Active 2 p uffs as MCG/ACT 14, needed for Inhalation 2018 sob/wheezing every 4-6 hrs Furosemide ND 23628972499 40 MG Orally Active 1 ta blet Once a day Wellbutrin XL ND 86941040042 150 MG Orally Active 1 tablet Once a day BD Insulin Syringe [facility] 75973555563 31G X 5/16" 1 Nov Act hans as directed U/F ML 10, subcutaneous 2018 to be used twice daily with Novolin 70/30 vial Novolin 70/30 PenFill NDC 0 70/30 sub Q Active 50 units Twice a day Pen Strang [facility] 61090094620 32G X 6 MM April Active as di rected subcutaneous 13, use twice 2019 daily with Novolin 70/30 FlexPen Losartan Potassium [facility] 85652518516 100 MG Orally Act hans 1 tablet Once a day for high blood pressure Results Name Result Date Reference Range Unit Abnormali ty Flag Microalbumin, Random Urine ----Albumin, Urine 23.5 [id number] Not Estab. ug/mL Magnesium, Serum ----Magnesium 2.0 58600628 1.6-2.3 mg/dL HEMOGLOBIN A1C ----A1C 8.7% [id number] Lipid Panel w/ Chol/HDL Ratio ----T. Chol/HDL Ratio 3.6 27640165 0.0-4.4 ratio ----VLDL Cholesterol Nathaniel 35 98225965 5-40 mg/dL ----LDL Cholesterol Calc 56 46994018 0-99 mg/dL ----Triglycerides 175 72799054 0-149 mg/dL H ----HDL Cholesterol 35 43657621 >39 mg/dL L ----Cholesterol, Total 126 00301883 100-199 mg/dL Vitamin D, 25-Hydroxy ----Vitamin D, 7.2 78840651 30.0-100.0 ng/mL L 25-Hydroxy TSH ----TSH 6.620 36720645 0.450-4.500 uIU/mL H CBC With Differential/Platelet ----WBC 6.5 09691569 3.4-10.8 x10E3/uL ----RBC 4.37 86850984 3.77-5.28 x10E6/uL ----Hemoglobin 10.8 22968938 11.1-15.9 g/dL L ----RDW 15.7 15919255 11.7-15.4 % H ----Platelets 196 75554625 150-450 x10E3/uL ----Baso (Absolute) 0.0 99046679 0.0-0.2 x10E3/uL ----Eos (Absolute) 0.1 13615049 0.0-0.4 x10E3/uL ----Hematocrit 34.8 70663481 34.0-46.6 % ----Monocytes(Absolute) 0.4 52578904 0.1-0.9 x10E3/uL ----MCV 80 47627391 79-97 fL ----Lymphs (Absolute) 1.0 [id number] 0.7-3.1 x10E3/uL ----MCH 24.7 20953624 26.6-33.0 pg L ----Neutrophils 5.0 17893215 1.4-7.0 x10E3/uL (Absolute) ----MCHC 31.0 98489251 31.5-35.7 g/dL L ----Neutrophils 76 39547051 Not Estab. % ----Immature 1 [id number] Not Estab. % Granulocytes ----Lymphs 15 31530626 Not Estab. % ----Immature Grans (Abs) 0.0 62037032 0.0-0.1 x10E3/uL ----Monocytes 6 62532751 Not Estab. % ----Eos 2 94037342 Not Estab. % ----Basos 0 59814014 Not Estab. % Comp. Metabolic Panel (14) (CMP) ----Potassium 4.6 84712089 3.5-5.2 mmol/L ----Sodium 139 76803957 134-144 mmol/L ----BUN/Creatinine Ratio 26 [id number] 12-28 ----eGFR If Africn Am 52 [id number] >59 mL/min/1.73 L ----eGFR If NonAfricn Am 45 [id number] >59 mL/min/1.73 L ----Creatinine 1.24 83340582 0.57-1.00 mg/dL H ----BUN 32 38108797 8-27 mg/dL H ----Glucose 179 50684509 65-99 mg/dL H ----AST (SGOT) 16 78524977 0-40 IU/L ----Globulin, Total 3.0 53993916 1.5-4.5 g/dL ----ALT (SGPT) 13 29757727 0-32 IU/L ----A/G Ratio 1.4 83765212 1.2-2.2 ----Bilirubin, Total 0.4 54999678 0.0-1.2 mg/dL ----Alkaline Phosphatase 125 65076342 39-117 IU/L H ----Carbon Dioxide, 30 63711130 20-29 mmol/L H Total ----Calcium 9.6 31919675 8.7-10.3 mg/dL ----Protein, Total 7.1 38679008 6.0-8.5 g/dL ----Albumin 4.1 15318769 3.8-4.8 g/dL ----Chloride 94 20200518 96-106 mmol/L L Uric Acid, Serum ----Uric Acid 9.8 12942380 2.5-7.1 mg/dL H Summary Purpose eClinicalWorks Submission
--- OUTSIDE RECORDS SUMMARY | 2020-07-31 11:29 | XMS REPORT | Continuity of Care Document ---
:1950 Author Organization [facility] t Address [address] [place] [address] Care Team Providers Name Role Phone Lori MELGOZA Primary Care Physician Eleni VILLASEÑOR Attending Clinician Gelacio Coronado Attending Clinician Payers Payer Name Policy Policy Number Effective Expiration Source Type Date Date MEDICAREMEDICARE A xxxxxxxxxxx [facility] [place] [facility] Problems Condition Condition Condition Status Onset Resolution Last Treating Co mments Source Name Details Category Date Date Treatment Clinician Date Lumbar Lumbar Disease Active [facility] radiculopa radiculopa 6-29 Milena kes - thy thy 00:00: Medical 00 [place] Primary Primary Disease Active [facility] osteoarthr osteoarthr 6-29 Milena kes - itis of itis of 00:00: Medical both knees both knees 00 Ce nter Skin ulcer Skin ulcer Disease Active [facility] of ankle, of ankle, 1-25 [facility] - unspecifie unspecifie 00:00: Me dical d d 00 Center laterality laterality , with , with unspecifie unspecifie d severity d severity Morbid Morbid Disease Active [facility] obesity obesity 7- [facility] - with body with body 00:00: Medi blair mass index mass index 00 Ce nter of of 40.0-49.9 40.0-49.9 Reactive Reactive Disease Active [facility] depression depression 05-09 Milena kes - 00:00: Medical 00 Center Lymphedema Lymphedema Disease Active [facility] of both of both 05-09 [facility] - lower lower 00:00: Medical extremitie extremitie 00 Ce nter s s Varicose Varicose Disease Active [facility] veins of veins of 05-09 [facility] - both lower both lower 00:00: Me dical extremitie extremitie 00 Ce nter s with s with pain pain Essential Essential Disease Active [facility] hypertensi hypertensi 04-20 Milena kes - on on 00:00: Medical 00 [place] Type 1 Type [address] [facility] diabetes diabetes 04-20 [facility] - mellitus mellitus 00:00: Medica l with with 00 [place] neurologic neurologic al al manifestat manifestat ions ions 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 2 Luke [facility] - diabetes diabetes Memori a mellitus mellitus l with with Outpati hyperglyce hyperglyce en t [facility] Clinics Polyarthra Polyarthra Problem Active [facility] lgia lgia [facility]ics Shoulder Shoulder Problem Active [facility] pain pain [facility] Depression Depression Problem Active [facility] Abdominal Abdominal Problem Active [facility] pain pain [facility] Seborrheic Seborrheic Problem Active [facility] dermatitis dermatitis Milena kes - Memoria l Outpati ent Clinics Melena Melena Problem Active [facility]ics 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 [facility] Urinary Urinary Problem Active [facility] incontinen incontinen Milena ke - ce Memoria l Outpati ent Clinics Hyperlipid Hyperlipid Problem Active [facility] emia, emia, [facility] - unspecifie unspecifie Me moria d d l hyperlipid hyperlipid Ou tpati emia type emia type ent Clinics Essential Essential Problem Active [facility] hypertensi hypertensi Milena kes - on on Memoria l Outpati ent Clinics 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 [facility] - of both of both Memoria eyes, eyes, l unspecifie unspecifie Ou tpati d glaucoma d glaucoma en t stage, stage, Clinics unspecifie unspecifie d d open-angle open-angle glaucoma glaucoma type type Urge Urge Problem Active [facility] incontinen incontinen Milena kes - ce of ce of Memoria urine urine l [facility] Low back Low back Problem Active [facility] pain pain [facility] - Memoria l [facility] Pain in Pain in Problem Active [facility] right knee right knee Milena kes - Memoria l [facility] Other Other Problem Active [facility] chronic chronic [facility] - pain pain Memoria l [facility] Pain in Pain in Problem Active [facility] right foot right foot Milena kes - Memoria l [facility] Pain in Pain in Problem Active [facility] left knee left knee Luke s - Memoria l [facility] Pain of Pain of Problem Active [facility] left foot left foot Luke s - Memoria l [facility] BMI BMI Problem Active [facility] 45.0-49.9, 45.0-49.9, Milena kes - adult adult Memoria l [facility] Respirator Respirator Problem Active [facility] y symptoms y symptoms Milena kes - Memoria l [facility] Grief Grief Problem Active [facility] reaction reaction [facility] - Memoria l [facility] Chronic Chronic Problem Active [facility] pain pain [facility] - syndrome syndrome Memori a l [facility] Depression Depression Problem Active [facility] with with [facility] - anxiety anxiety Memoria [facility] Overactive Overactive Problem Active [facility] bladder bladder [facility] - Memoria l [facility] Shortness Shortness Problem Active [facility] of breath of breath Luke s - Memoria l [facility] Morbid Morbid Problem Active [facility] obesity obesity [facility] - Memoria l [facility] Rash and Rash and Problem Active [facility] nonspecifi nonspecifi Milena kes - c skin c skin Memoria eruption eruption l [facility] Dietary Dietary Problem Active [facility] surveillan surveillan Milena kes - ce and ce and Memoria counseling counseling l [facility] Chest Chest Problem Active [facility] pain, pain, [facility]ukes - unspecifie unspecifie Me moria d type d type l [facility] Elevated Elevated Problem Active [facility] TSH TSH [facility] - Memoria l [facility] Loss of Loss of Problem Active [facility] taste taste [facility] - Memoria l [facility] Vitamin D Vitamin D Problem Active [facility] deficiency deficiency Milena kes - Memoria l [facility] ent Clinics Peripheral Peripheral Problem Active [facility] edema edema [facility] - Mem[facility] l [facility] Vaginal Vaginal Problem Active [facility] itching itching [facility] - [facility] Hyperurice Hyperurice Problem Active [facility] jg jg [facility] Hypersomni Hypersomni Problem Active [facility] a a [facility] Apnea Apnea Problem Active [facility] Snoring Snoring Problem Active [facility] Allergies, Adverse Reactions, Alerts This patient has no known allergies or adverse reactions. Family History Family Member Diagnosis Comments Start Date Stop Date Source Natural mother Arthritis [facility] Natural mother Diabetes [facility] thodist Natural mother Hypertension [facility] Natural mother Peripheral vascular [facility] Natural mother Vasculitis [facility] Natural father Diabetes [facility] Social History Social Habit Start Date Stop Date Quantity Comments Source History SDOH [facility] - Alcohol Std Drinks [facility] History SDSD [facility] - Alcohol Binge Medical [facility] ter Sex Assigned At [facility] History [facility] 2019-03-08 2019-03-[address] [facility] - Alcohol Frequency 00:00:00 00:00:00 [facility] Tobacco use and 2018-06-24 2018-06-24 Never used [facility] ethodist exposure 00:00:00 00:00:00 Alcohol intake 2018-06-24 2018-06-24 Current drinker [place] [facility] 00:00:00 00:00:00 of alcohol (finding) Smoking Status Start Date Stop Date Source Never smoker [facility] St kes [facility] edical [place] Medications Ordered Filled Start Stop Current Ordering Indication Dosage Frequency Signature Comments Components Source Medication Medication Date Date Medication? Clinician (SIG) Name Name Ketoconazol Ketoconazol 2019- Yes Shalonda [address] [facility] e e 05-18 [place] applicatio [facility] - 00:00: 00:00 n to Memoria 00 :00 affected l area([facility] dexamethaso 2019- No Primary 4mg [facility] ne 05-01 osteoarthri [facility]ukes - (DECADRON) 15:30: 16:38 tis of both Medical injection 4 00 :00 knees Center mg lidocaine 2019-0 2019- No Primary 1mL [facility] (XYLOCAINE) 05-01-30 osteoarthri [facility] - injection 15:30: 16:38 tis of both Medical 1% 00 :00 knees Center bupivacaine 2019-2019- No Primary 2.5mg [facility] 0.25 % (2.5 05-01-30 osteoarthri [facility] - mg/mL) 15:30: 16:37 tis of both Med ical injection 00 :00 knees Center 2.5 mg dexamethaso 2019-2019- No Primary 4mg [facility] ne 05-01 osteoarthri [facility]ukes - (DECADRON) 15:30: 16:37 tis of both Medical injection 4 00 :00 knees Center mg lidocaine 2019-2019- No Primary 1mL [facility] (XYLOCAINE) 05-01 osteoarthri [facility] - injection 15:30: 16:37 tis of both Medical 1% 00 :00 knees Center bupivacaine 2019-2019- No Primary 2.5mg [facility] 0.25 % (2.5 05-01-30 osteoarthri [facility] - mg/mL) 15:30: 16:37 tis of both Med ical injection 00 :00 knees Center 2.5 mg lidocaine 2019-2019- No Primary 1mL [facility] (XYLOCAINE) 2-27 12-24 osteoarthri [facility]ukes - injection 14:15: 14:02 tis of left Medical 1% 00 :00 knee Center bupivacaine 2019-2019- No Primary 2.5mg [facility] 0.25 % (2.5 -27 12-24 osteoarthri [facility]ukes - mg/mL) 14:15: 14:01 tis of left Med ical injection 00 :00 knee Center 2.5 mg triamcinolo 2019-2019- No Primary 40mg [facility] ne 2-27 12-24 osteoarthri [facility]ukes - acetonide 14:15: 14:03 tis of left Medical (KENALOG-40 00 :00 knee Center ) injection 40 mg lidocaine 2019-2019- No Primary 1mL [facility] (XYLOCAINE) 2-24 02-24 osteoarthri [facility]ukes - injection 14:15: 14:01 tis of Medic al 1% 00 :00 right knee Center bupivacaine 2019- No Primary 2.5mg [facility] 0.25 % (2.5 12-27 osteoarthri Lukes - mg/mL) 14:15: 14:01 tis of Medical injection 00 :00 right knee Cent er 2.5 mg triamcinolo 2019- No Primary 40mg [facility] ne 12-27 osteoarthri Lukes - acetonide 14:15: 14:02 tis of Medic al (KENALOG-40 00 :00 right knee Ce nter ) injection 40 mg BD VEO Yes USE [facility] INSULIN 2-07 DIRECTED [facility] - SYRINGE UF 00:00: TO BE USED M edical 1 mL 31 TWICE A Center gauge x DAY WITH " Syrg NOVOLIN 70 30 dexamethaso 2019- No Primary 4mg [facility] ne 11-26 osteoarthri Lukes - (DECADRON) 17:00: 16:31 tis of Medi blair injection 4 00 :00 right knee Ce nter mg lidocaine 2019- No Primary 1mL [facility] (XYLOCAINE) 11-26 osteoarthri [facility] - injection 17:00: 16:33 tis of Medic al 1% 00 :00 right knee Center bupivacaine 2019- No Primary 2.5mg [facility] 0.25 % (2.5 11-26 osteoarthri Lukes - mg/mL) 17:00: 16:30 tis of Medical injection 00 :00 right knee Cent er 2.5 mg dexamethaso 2019- No Primary 4mg [facility] ne 11-26 osteoarthri Lukes - (DECADRON) 16:45: 16:32 tis of left Medical injection 4 00 :00 knee Center mg lidocaine 2019- No Primary 1mL [facility] (XYLOCAINE) 11-26 osteoarthri [facility]ukes - injection 16:45: 16:34 tis of left Medical 1% 00 :00 knee Center bupivacaine 2019- No Primary 2.5mg [facility] 0.25 % (2.5 11-26 osteoarthri Lukes - mg/mL) 16:45: 16:31 tis of left Med ical injection 00 :00 knee Center 2.5 mg meloxicam Yes TAKE [address] [facility] (MOBIC) 15 -24 TO 1 (ONE Luke s - MG tablet 00:00: HALF TO Medic al 00 ONE) Center TABLET BY MOUTH ONCE DAILY NEEDED WITH FOOD FOR PAIN FOR 90 DAYS XELPROS Yes INSTILL 1 [facility] 0.005 % 1-14 DROP DAILY [facility]ukes - dpem 00:00: IN EACH Medical 00 EYE AT Center BEDTIME escitalopra 2018-11 Yes TAKE [address] [facility] [facility] m oxalate 2-10 TABLET BY [facility]ukes - (LEXAPRO) 00:00: MOUTH ONCE Me dical 10 MG 00 DAILY FOR Center tablet DEPRESSION AND FOR ANXIETY FOR 90 DAYS Blood Blood 2018-11 Yes [address] as [facility] Glucose Glucose 1-10 [place] directed Luke s - Test Strip Test Strip 00:00: (DISPENSE Memoria 00 BLOOD l GLUCOSE Outpati TEST ent STRIPS Clinics FORMULARY TO INSURANCE) BD Insulin BD Insulin 2018-11 Yes Shalonda as [facility] Syringe U/F Syringe U/F 1-10 [place] directed [facility]ukes - 00:00: Memoria 00 l Outpati ent Clinics miscellaneo 2020- No Primary Bilateral [facility] us medical 07-12 osteoarthri unloading [facility]ukes - supply Misc 00:00: 00:00 tis of brace.. Medical 00 :00 right knee Center ProAir HFA ProAir HFA Yes Shalonda [address] [facility] 8-14 [place] needed for [facility]ukes - 00:00: sob/wheezi Memoria 00 ng l Outpati ent Clinics losartan Yes TAKE [address] [facility] [facility] (COZAAR) 8-14 TABLET BY [facility]ukes - 100 MG 00:00: MOUTH ONCE Medic al tablet 00 DAILY FOR Center HIGH BLOOD PRESSURE FOR 30 DAYS PREMARIN 2019- No APPLY [facility] 0.625 05-25 VAGINALLY [facility] - mg/gram 00:00: 00:00 TWICE A Medica l vaginal 00 :00 WEEK Center cream DIRECTED FOR 90 DAYS dexamethaso 2019- No Trigger 5mg [facility] ne 707 06-29 finger, Lukes - (DECADRON) 15:00: 11:25 right ring Medical injection 5 00 :51 finger Center mg lidocaine 2019- No Trigger 3mL [facility] (XYLOCAINE) 05-09 finger, Luke s - injection 15:00: 11:26 right ring M edical 2% 00 :27 finger Center bupivacaine 2019- No Trigger 5.625mg [facility] 0.25 % (2.5 05-09 finger, Luke s - mg/mL) 15:00: 11:25 right ring Medi blair injection 00 :44 finger Center 5.625 mg bupivacaine Yes Bilateral 5mg [facility] 0.25 % (2.5 04-20 primary [facility]ukes - mg/mL) 10:30: osteoarthri Medi blair injection 5 00 tis of knee C enter mg dexamethaso 2019- No Type [address] [facility] ne 04-20 diabetes [facility] - (DECADRON) 10:30: 11:26 mellitus Me dical injection 8 00 :09 with other Ce nter mg neurologic complicatio n, with long-term current use of insulin (HCC) lidocaine 2019- No Bilateral 2mL [facility] (XYLOCAINE) 04-20 primary Luke s - injection 10:30: 11:26 osteoarthri Medical 1% 00 :21 tis of knee Center diclofenac 2019- No 2g Q.25D Apply [address] [facility] 1 % Gel 04-20 topically [facility]ukes - 00:00: 00:00 4 (four) Medical 00 :00 times Center daily. Pen [place] Pen [place] Yes Shalonda as [facility] 613 [place] directed [facility]ukes - 00:00: Memoria 00 l Outpati ent Clinics aspirin Yes [address] [facility] (ASPIR-81) 5-06 [facility] - 81 MG EC 16:42: Medical tablet 03 [place] gabapentin Yes gabapentin [facility] (NEURONTIN) 5-06 300 mg [facility]ukes - 300 MG 16:42: capsule Medical capsule 03 [place] turmeric-tu Yes as [facility] rmeric root 5-06 directed Luke s - extract 16:42: Medical 450-50 mg 01 [place] Cap irbesartan 2019- No [facility] (AVAPRO) 03-0724 [facility] - 300 MG 00:00: 00:00 Medical tablet 00 :00 [place] buPROPion 2019-0 2020- No [facility] (WELLBUTRIN 5-02 01-24 [facility] - XL) 150 MG 00:00: 00:00 Medica l 24 hr 00 :00 [place] tablet COMBIGAN 2018- Yes [facility] 0.2-0.5 % 4-23 [facility] - ophthalmic 00:00: Medical solution 00 [place] meloxicam 0 2020- No [facility] (MOBIC) 15 4-20 01-24 [facility] - MG tablet 00:00: 00:00 Medical 00 :00 [place] amLODIPine Yes [facility] (NORVASC) 3-13 [facility]ukes - 10 MG 00:00: Medical tablet 00 [place] diclofenac Yes [facility] 1 % Gel 3-12 [facility] - 00:00: Medical 00 [place] simvastatin Yes [facility] (ZOCOR) 20 2-20 [facility] - MG tablet 00:00: Medical 00 [place] hydroCHLORO Yes [facility] thiazide 2-20 [facility]ukes - (HYDRODIURI 00:00: Medica l L) 25 MG 00 [place] tablet furosemide Yes [facility] (LASIX) 40 2-20 [facility] - MG tablet 00:00: Medical 00 [place] TRAVATAN Z Yes [facility] 0.004 % 2-15 [facility] - Drop 00:00: Medical ophthalmic 00 [place] drops metFORMIN Yes [facility] (GLUCOPHAGE 2-15 [facility] - -XR) 500 MG 00:00: Medica l 24 hr 00 [place] tablet Insulin Insulin 2017-11 Yes Shalonda as [facility] Syringes Syringes 2-13 [place] directed Milena kes - (Disposable (Disposable 00:00: Memoria ) ) 00 l Outpati ent Clinics Blood Blood 2017-11 Yes Shalonda as [facility] Glucose Glucose 2-13 [place] directed Luke s - Monitor Monitor 00:00: (DISPENSE Me moria 00 BLOOD l GLUCOSE Outpati MONITOR ent FORMULARY Clinics TO INSURANCE) Lancets Lancets 2017-11 Yes Shalonda as [facility] 2-13 [place] directed [facility]ukes - 00:00: (dispense Memoria 00 lancets l formulary Outpati to ent insurance) Clinics insulin 2017-[address] 70/30, 2-13 directed [facility]ukes - insulin 00:00: Medical NPH-insulin 00 [place] regular, (NOVOLIN 70/30 U-100 INSULIN) 100 unit/mL (70-30) injection aspirin Yes 81mg QD Take 81 mg [place] (ECOTRIN) 06-24 by mouth Method i 81 MG 13:47: daily. st enteric 56 coated tablet TURMERIC Yes Take by [place] 8 mouth. Methodi EXTRACT 13:47: st ORAL 56 gabapentin Yes gabapentin H luis alberto (NEURONTIN) 06-24 300 mg Method i 300 mg 13:46: capsule st capsule 32 furosemide Yes furosemide Abiola luis alberto (LASIX) 40 06-24 40 mg Methodi mg tablet 13:46: tablet st 32 simvastatin Yes simvastati Pereira (ZOCOR) 20 06-24 n 20 mg Method i MG tablet 13:46: tablet st 32 TAKE 1 TABLET AT BEDTIME irbesartan Yes irbesartan Abiola luis alberto (AVAPRO) 06-24 300 mg Methodi 300 MG 13:46: tablet st tablet 32 TAKE 1 BY MOUTH EVERY DAY insulin Yes Novolin [place] 70/30 NPH 06-24 70/30 Methodi and regular 13:46: U-100 st human 32 Insulin (NovoLIN 100 70/30 U-100 unit/mL Insulin) subcutaneo 100 unit/mL (70-30) suspension injection travoprost Yes Travatan Z Abiola sahu (TRAVATAN 06-24 0.004 % Methodi Z) 0.004 % 13:46: eye drops st 32 hydroCHLORO Yes hydrochlor Pereira thiazide 06-24 othiazide Method i (HYDRODIURI 13:46: [address] L) 25 MG 31 tablet tablet TAKE ONE TABLET BY MOUTH DAILY amLODIPine Yes amlodipine Abiola luis alberto (NORVASC) 06-24 10 mg [facility]i 10 mg 13:38: tablet st tablet 48 metFORMIN Yes [place] XR 06-23 [facility] (GLUCOPHAGE 00:00: st -XR) 500 mg 00 24 hr tablet COMBIGAN Yes Pereira 0.2-0.5 % 06-22 [facility] ophthalmic 00:00: st solution 00 buPROPion Yes [place] XL 819 Methodi (WELLBUTRIN 00:00: st XL) 150 MG 00 24 hr tablet Turmeric Turmeric Yes Shalonda as [facility] [place] directed [facility] Outpati ent Clinics Hydrochloro Hydrochloro Yes Shalonda [address] thiazide thiazide [place] [facility] - Memoria l Outpati ent Clinics Escitalopra Escitalopra Yes Shalonda [address] m Oxalate m Oxalate [place] Luke s - Memoria l Outpati ent Clinics Metformin Metformin Yes Shalonda [address] HCl HCl [place] with meals [facility] - Memoria l Outpati ent Clinics Combigan Combigan Yes Shalonda [address] [place] into Lukes - affected Memoria eye l Outpati ent Clinics [facility] Yes Shalonda [address] 70/30 70/30 [place] [facility]ukes - PenFill PenFill Memoria l Outpati ent Clinics Amlodipine Amlodipine Yes Shalonda [address] Besylate Besylate [place] [facility] - Memoria l Outpati ent Clinics Zocor Zocor Yes Shalonda [address] [place] in the [facility]ukes - evening Memoria l Outpati ent Clinics Gabapentin Gabapentin Yes Shalonda [address] [place] [facility]ukes - Memoria l Outpati ent Clinics Meloxicam Meloxicam Yes Shalonda TAKE 1/[address] [place] TO 1 [facility]ukes - (ONE-HALF Memoria TO ONE) l TABLET BY Outpati MOUTH ONCE ent DAILY Clinics NEEDED FOR PAIN Premarin Premarin Yes Shalonda as [facility] [place] directed [facility]ukes - Memoria l Outpati ent Clinics Wellbutrin Wellbutrin Yes Shalonda [address] [facility] XL XL [place] [facility] - Memoria l Outpati ent Clinics [facility] Yes Shalonda as [facility] 70/30 70/30 [place] directed [facility] - Memoria l Outpati ent Clinics Travatan Z Travatan Z Yes Shalonda [address] [facility] [place] into Lukes - affected Memoria eye in the l evening Outpati ent Clinics Aspir-81 Aspir-81 Yes Shalonda [address] [place] [facility] - Memoria l Outpati ent Clinics Furosemide Furosemide Yes Shalonda [address] [place] [facility] - Memoria l Outpati ent Clinics Losartan Losartan Yes Shalonda [address] Potassium Potassium [place] Luke s - Memoria l Outpati ent Clinics Mobic Mobic 2020- No Shalonda 1/[address] 04-16 [place] tablet as [facility]ukes - 00:00 needed for Memoria :00 pain; take l with food Outpati or milk ent Clinics Immunizations Ordered Filled Immunization Date Status Comments [facility] e Immunization Name Name FLUZONE HIGH DOSE FLUZONE HIGH DOSE 2019-09-[address] [facility] - OVER 65 OVER 65 00:00:00 [facility] Vital Signs Vital Name Observation Time Observation Value Comments Source Systolic blood 2020-05-01 12:23:00 139 mm[Hg] [facility] Diastolic blood 2020-05-01 12:23:00 80 mm[Hg] [facility] Heart rate 2020-05-01 11:24:00 86 /min [facility] Body temperature 2020-05-01 11:24:00 36.61 Lay [facility] Body height 2020-05-01 11:24:00 162.6 cm [facility] Body weight Measured 2020-05-01 11:24:00 118.842 kg [facility] BMI 2020-05-01 11:24:00 44.97 kg/m2 [facility] Procedures This patient has no known procedures. Plan of Care Planned Activity Planned Date Details Comments Source Future Scheduled 2020-07-04 INFLUENZA VACCINE (#1) [facility] - Test 00:00:00 [code = INFLUENZA Medical Ce nter VACCINE (#1)] Future Scheduled 2020-06-03 INFLUENZA VACCINE [place] [facility] Test 00:00:00 [code = INFLUENZA VACCINE] Future Scheduled 2019-04-[address] Milena kes - Test 00:00:00 [facility] (procedure) [code = 52071800] Future Scheduled 2017 65+ PNEUMOCOCCAL [facility] Test 00:00:00 VACCINE (1 of 1 - PPSV23) [code = 65+ PNEUMOCOCCAL VACCINE (1 of 1 - PPSV23)] Future Scheduled 2017 [address]CCAL [address] - Test 00:00:00 LOW/MEDIUM RISK (1 of Medica Center 2 - PCV13) [code = PNEUMOCOCCAL 65+ LOW/MEDIUM RISK (1 of 2 - PCV13)] Future Scheduled 2015-11-[address] [facility] - Test 00:00:00 WELLNESS (YEAR 2 or Medical Center FIRST YEAR if no IPPE) [code = MEDICARE ANNUAL WELLNESS (YEAR 2 or FIRST YEAR if no IPPE)] Future Scheduled 2002 BREAST CANCER [facility] thodist Test 00:00:00 SCREENING [code = BREAST CANCER SCREENING] Future Scheduled 2002 COLONOSCOPY SCREENING [place] [facility] Test 00:00:00 [code = COLONOSCOPY SCREENING] Future Scheduled 2002 SHINGLES VACCINES (#1) [place] [facility] Test 00:00:00 [code = SHINGLES VACCINES (#1)] Future Scheduled [address] DIABETIC EYE EXAM [facility] - Test 00:00:00 [code = DIABETIC EYE Medical Center EXAM] Future Scheduled [address] - Test 00:00:00 examination Medical Center (regime/therapy) [code = 060985937] Future Scheduled 1962 Urine screening for [facility] - Test 00:00:00 protein (procedure) Medical Center [code = 424824095] Future Scheduled [address] [facility] - Test 00:00:00 malignant ne[facility] of [facility] breast (procedure) [code = 391253294] Future Scheduled [address] - Test 00:00:00 malignant neoplasm of [facility] colon (procedure) [code = 787616353] Encounters Start End Encounter Admission Attending Care Care Encounter Source Date/Time Date/Time Type Type Clinicians Facility Department ID 2020-06-21 2020-06-21 Outpatient Howard Castañeda [id number] [facility] 14:24:00 14:24:00 [facility] Medicine l Medicine Outpati ent Clinics 2020-05-24 2020-05-24 Outpatient Howard Castañeda [id number] [facility] 15:20:00 15:20:00 [facility] Family Medicine l Medicine Outpati ent Clinics 2020-05-23 2020-05-23 Outpatient Howard Castañeda [id number] 10:00:00 10:00:00 [facility] Family Medicine l Medicine Outpati ent Clinics 2020-05-22 2020-05-22 Outpatient Howard Castañeda [id number] 22:46:00 22:46:00 [facility] Medicine l Medicine Outpati ent Clinics 2020-05-22 2020-05-22 [facility] [id number] 08:11:00 08:11:00 t [facility] Medicine l Medicine Outpati ent Clinics 2020-05-18 2020-05-18 [facility] [id number] 08[facility]40:00 08:40:00 t [facility] Medicine l Medicine Outpati ent Clinics 2020-02-25 2020-02-25 [facility] [id number] 08:46:00 08:46:00 t [facility] Medicine l Medicine Outpati ent Clinics 2020-01-24 2020-01-24 [facility] [id number] [facility] 13:12:00 13:12:00 t [facility] Medicine l Medicine Outpati ent Clinics 2020-01-12 2020-01-12 [facility] [id number] [facility] 00:13:00 00:13:00 t [facility] Medicine l Medicine Outpati ent Clinics 2020-01-11 2020-01-11 [facility] [id number] [facility] 11:15:00 11:15:00 t [facility] Medicine Medicine Outpati ent Clinics 2019-10-12 2019-10-12 [facility] [id number] 10:40:00 10:40:00 t [facility] Medicine l Medicine Outpati ent Clinics 2019-09-24 2019-09-24 [facility] [id number] [facility] 13:14:00 13:14:00 t [facility] Medicine Medicine Outpati ent Clinics 2019-09-22 2019-09-22 [facility] [id number] [facility] 16:09:00 16:09:00 t [facility] Medicine l Medicine Outpati ent Clinics 2019-09-12 2019-09-12 [facility] [id number] [facility] 19:36:00 19:36:00 t [facility] Medicine Outpati ent Clinics 2019-09-01 2019-09-01 [facility] [id number] 09[facility]40:00 09:40:00 t [facility] Medicine Outpati ent Clinics 2019-08-24 2019-08-24 [facility] [id number] [facility] 14:20:00 14:20:00 t [facility] Medicine Outpati ent Clinics 2019-07-13 2019-07-13 [facility] [id number] [facility] 13:37:00 13:37:00 t [facility] Medicine Outpati ent Clinics 2019-07-13 2019-07-13 [facility] [id number] [facility] 11:00:00 11:00:00 t [facility] Medicine Outpati ent Clinics 2019-06-29 2019-06-29 [facility] [id number] [facility] 15:34:00 15:34:00 t [facility] Medicine Outpati ent Clinics 2019-06-21 2019-06-21 [facility] [id number] [facility] 14:08:00 14:08:00 t [facility]Urology Clinic l Clinic Outpati ent Clinics 2019-06-18 2019-06-18 [facility] [id number] [facility] 14:12:00 14:12:00 t Specialty/[facility]Urology Clinic l Clinic Outpati ent Clinics 2019-06-16 2019-06-16 [facility] [id number] 13:20:00 13:20:00 t [facility] Medicine Outpati ent Clinics 2019-06-11 2019-06-11 [facility] [id number] [facility] 11:00:00 11:00:00 t Specialty/[facility] - [facility] /Urology Clinic l Clinic Outpati ent Clinics 2019-06-09 2019-06-09 [facility] [id number] [facility] 10:15:00 10:15:00 t Specialty/[facility] - [facility]Urology Clinic l Clinic Outpati ent Clinics 2019-05-25 2019-05-25 [facility] [id number] [facility] 13:15:00 13:15:00 t Specialty/[facility] - [facility]Urology Clinic l Clinic Outpati ent Clinics 2019-05-13 2019-05-13 [facility] [id number] [facility] 13:30:00 13:30:00 t Specialty/[facility] - [facility] /Urology Clinic l Clinic Outpati ent Clinics 2019-04-15 2019-04-15 [facility] [id number] 21:16:00 21:16:00 t [facility] Medicine l Medicine Outpati ent Clinics 2019-04-14 2019-04-14 [facility] [id number] [facility] 10:20:00 10:20:00 t [facility] Medicine l Medicine Outpati ent Clinics 2019-04-13 2019-04-13 [facility] [id number] 02:03:00 02:03:00 t [facility] Medicine l Medicine Outpati ent Clinics 2019-03-15 2019-03-15 [facility] [id number] [facility] 11:40:00 11:40:00 t [facility] Medicine l Medicine Outpati ent Clinics 2019-02-18 2019-02-18 [facility] [id number] [facility] 13:56:00 13:56:00 t [facility] Medicine l Medicine Outpati ent Clinics 2019-02-06 2019-02-06 [facility] [id number] [facility] 02:29:00 02:29:00 t [facility] Medicine l Medicine Outpati ent Clinics 2019-02-02 2019-02-02 [facility] [id number] [facility] 15:00:00 15:00:00 t [facility] Medicine Outpati ent Clinics 2019-02-01 2019-02-01 [facility] [id number] 08:06:00 08:06:00 t [facility] Medicine Outpati ent Clinics 2019-01-29 2019-01-29 [facility] [id number] [facility] 16:07:00 16:07:00 t [facility] Medicine Outpati ent Clinics 2019-01-29 2019-01-29 [facility] [id number] 15:30:00 15:30:00 t [facility] Medicine Outpati ent Clinics 2019-01-18 2019-01-18 [facility] [id number] 13:27:00 13:27:00 t [facility] Medicine Outpati ent Clinics 2019-01-12 2019-01-12 [facility] [id number] [facility] 11:15:00 11:15:00 t [facility] Medicine Outpati ent Clinics 2018-11-06 2018-11-06 [facility] [id number] [facility] 13:13:00 13:13:00 t [facility] Medicine Outpati ent Clinics 2018-11-04 2018-11-04 [facility] [id number] [facility] 19:55:00 19:55:00 t [facility] Medicine Medicine Outpati ent Clinics 2018-10-30 2018-10-30 [facility] [id number] [facility] 10:30:00 10:30:00 t [facility] Medicine Outpati ent Clinics 2018-10-26 2018-10-26 [facility] [id number] [facility] 11:18:00 11:18:00 t [facility] Medicine Outpati ent Clinics 2018-10-15 2018-10-15 [facility] [id number] 09:30:00 09:30:00 [facility] 2018-07-14 2018-07-14 Outpatient Howard Lawrencet [id number] [facility] 16:00:00 16:00:00 [facility] 2018-07-09 2018-07-09 Outpatient Howard Castañeda [id number] [facility] 11:30:00 11:30:00 [facility] Results This patient has no known results.
--- OUTSIDE RECORDS SUMMARY | 2020-07-31 11:30 | XMS REPORT ---
:1950 [facility] Team Providers Name Role Phone Blakesteven Elaine Provider Role Unavailable Allergies No Known Allergies [...] Pain of right heel M79.671 Active Problem Dietary surveillance and Z71.3 Act [...] Active Problem Grief reaction F43.21 Active Medications No Known Medications Results No Known Results Summary Purpose eClinicalWorks Submission
--- OUTSIDE RECORDS SUMMARY | 2020-07-31 11:30 | XMS REPORT ---
:1950 Author Organization eClinicalWorks Care Team Providers Name Role Phone Darby Shalonda Provider Role Unavailable Allergies No Known Allergies [...] Pain of right heel M79.671 Active Assessment Encounter for observation for Z03.818 Active suspected exposure to other biological agents ruled out Problem Dietary surveillance and Z71.3 Act hans [...] Start End Status Dosage System Date Date Emeli [facility] 62947307671 500 MG Orally Active as di rected Insulin Syringes NDC 0 U-100 1 ML Dec Active as d irected (Disposable) subcutaneous 13, as directed 2017 with Novolin 70/30 BID Blood Glucose Test NDC 0 as directed Dec Active as directed Strip Test BS three 13, (DISPENSE times daily 2017 BLOOD GLUCOSE TEST STRIPS FORMULARY TO INSURANCE) Blood Glucose Monitor NDC 0 as directed Dec Activ e as directed Test BS three 13, (DISPENSE times daily 2017 BLOOD GLUCOSE MONITOR FORMULARY TO INSURANCE) Hydrochlorothiazide [facility] 71468650025 25 MG Orally Act hans 1 tablet Once a day Mobic [facility] 88511338294 15 MG Orally February Active 1/2 to 1 Once a day 16, tablet as 2020 needed for pain; take with food or milk Escitalopram Oxalate ND 42796524955 10 MG Orally Ac tive 1 tablet Once a day for depression and anxiety Metformin HCl [facility] 31288786066 500 MG Orally Active 2 tablet Twice a day with meals Combigan [facility] 16707348676 0.2-0.5 % Active 1 drop in to Ophthalmic affected eye Twice a day Novolin 70/30 PenFill NDC 0 70/30 sub Q Active 50 units Twice a day BD Insulin Syringe [facility] 00723752682 31G X 5/16" 1 Nov Act hans as directed U/F ML 10, subcutaneous 2018 to be used twice daily with Novolin 70/30 vial Amlodipine Besylate ND 58703985606 10 MG Orally Act hans 1 tablet Once a day Zocor [facility] 00224430475 20 MG Orally Active 1 table t in Once a day the evening Metformin HCl ND 98592226754 500 MG Orally Active 2 tablet Twice a day with meals Gabapentin ND 26387898509 300 MG Orally Active 1 c apsule Twice a day as needed for pain Meloxicam ND 82601712131 15 MG Active TAKE 1/2 T O 1 (ONE-HALF TO ONE) TABLET BY MOUTH ONCE DAILY NEEDED FOR PAIN Premarin ND 05283781796 0.625 MG/GM Active as dire cted Vaginal twice weekly Wellbutrin XL ND 34988072662 150 MG Orally Active 1 tablet Once a day Novolin 70/30 ND 18172691501 (70-30) 100 Active as directed UNIT/ML Subcutaneous 50 units Twice daily Travatan Z ND 30440679424 0.004 % Active 1 drop in to Ophthalmic affected eye Once a day in the evening Lancets [facility] 63516838664 - as directed Dec Active as dir ected Test BS three 13, (dispense times daily 2017 lancets formulary to insurance) ProAir HFA [facility] 15925075004 108 (90 Base) Jun Active 2 p uffs as MCG/ACT 14, needed for Inhalation 2018 sob/wheezing every 4-6 hrs Blood Glucose Monitor NDC 0 as directed Nov Activ e as directed Test BS three 10, (DISPENSE times daily 2018 BLOOD GLUCOSE MONITOR FORMULARY TO INSURANCE) Ketoconazole ND 17087319598 2 % May Active 1 Externally 16, 15, application Once a day 2019 2019 to affected area(s) Lancets [facility] 08214393484 - as directed Nov Active as dir ected Test BS three 10, (dispense times daily 2018 lancets formulary to insurance) Aspir-81 ND 72652152408 81 MG Orally Active 1 tabl et Once a day Furosemide ND 84182162530 40 MG Orally Active 1 ta blet Once a day Pen [place] ND 04127745449 32G X 6 MM April Active as di rected subcutaneous 13, use twice 2019 daily with Novolin 70/30 FlexPen Blood Glucose Test NDC 0 as directed Nov Active as directed Strip Test BS three 10, (DISPENSE times daily 2018 BLOOD GLUCOSE TEST STRIPS FORMULARY TO INSURANCE) Losartan Potassium ND 62345526073 100 MG Orally Act hans 1 tablet Once a day for high blood pressure Results No Known Results Summary Purpose eClinicalWorks Submission
--- OUTSIDE RECORDS SUMMARY | 2020-07-31 11:31 | XMS REPORT ---
:1950 [facility] Team Providers Name Role Phone BlakeElaine harris Provider Role Unavailable Allergies No Known Allergies [...]
--- OUTSIDE RECORDS SUMMARY | 2020-07-31 11:31 | XMS REPORT ---
:1950 Author Organization eClinicalWorks Care Team Providers Name Role Phone Shalonda Pastor Provider Role Unavailable Allergies, Adverse Reactions, Alerts [...] Pain of right heel M79.671 Active Assessment Diarrhea, unspecified type R19.7 A ctive Problem Dietary surveillance and Z71.3 Act hans counseling Assessment Loss of taste R43.2 Active Problem Chest pain, unspecified type R07.9 Active [...] Start End Status Dosage System Date Date Andrea [facility] 89597231274 0.2-0.5 % Active 1 drop in to Ophthalmic affected eye Twice a day Travatan Jabier ND 63674287223 0.004 % Active 1 drop in to Ophthalmic affected eye Once a day in the evening Zocor [facility] 29108528072 20 MG Orally Active 1 table t in Once a day the evening Mobic ND 27686963998 15 MG Orally February Active 1/2 to 1 Once a day 16, tablet as 2020 needed for pain; take with food or milk Meloxicam [facility] 84778815446 15 MG Active TAKE 1/2 T O 1 (ONE-HALF TO ONE) TABLET BY MOUTH ONCE DAILY NEEDED FOR PAIN Lancets [facility] 83331362818 - as directed Nov Active as dir ected Test BS three 10, (dispense times daily 2018 lancets formulary to insurance) Blood Glucose Monitor NDC 0 as directed Nov Activ e as directed Test BS three 10, (DISPENSE times daily 2018 BLOOD GLUCOSE MONITOR FORMULARY TO INSURANCE) ProAir HFA [facility] 14753016361 108 (90 Base) Jun Active 2 p uffs as MCG/ACT 14, needed for Inhalation 2018 sob/wheezing every 4-6 hrs Ketoconazole ND 86148009849 2 % May Active 1 Externally 16, 15, application Once a day 2019 2019 to affected area(s) Blood Glucose Test NDC 0 as directed Dec Active as directed Strip Test BS three 13, (DISPENSE times daily 2017 BLOOD GLUCOSE TEST STRIPS FORMULARY TO INSURANCE) Pen [place] ND 13013485581 32G X 6 MM April Active as di rected subcutaneous 13, use twice 2019 daily with Novolin 70/30 FlexPen Premarin ND 99526625396 0.625 MG/GM Active as dire cted Vaginal twice weekly Blood Glucose Test NDC 0 as directed Nov Active as directed Strip Test BS three 10, (DISPENSE times daily 2018 BLOOD GLUCOSE TEST STRIPS FORMULARY TO INSURANCE) BD Insulin Syringe [facility] 63511293852 31G X 5/16" 1 Nov Act hans as directed U/F ML 10, subcutaneous 2018 to be used twice daily with Novolin 70/30 vial Novolin 70/30 [facility] 59133325528 (70-30) 100 Active as directed UNIT/ML Subcutaneous 50 units Twice daily Wellbutrin XL ND 64593920598 150 MG Orally Active 1 tablet Once a day Gabapentin ND 41180252817 300 MG Orally Active 1 c apsule Twice a day as needed for pain Furosemide ND 82174828697 40 MG Orally Active 1 ta blet Once a day Amlodipine Besylate ND 30189558905 10 MG Orally Act hans 1 tablet Once a day Aspir-81 [facility] 46432905058 81 MG Orally Active 1 tabl et Once a day Escitalopram Oxalate ND 11426419968 10 MG Orally Ac tive 1 tablet Once a day for depression and anxiety Losartan Potassium ND 57686750100 100 MG Orally Act hans 1 tablet Once a day for high blood pressure Lancets [facility] 60290324314 - as directed Dec Active as dir ected Test BS three 13, (dispense times daily 2018 lancets formulary to insurance) Metformin HCl ND 46706030321 500 MG Orally Active 2 tablet Twice a day with meals Turmeric ND 49516066338 500 MG Orally Active as di rected Hydrochlorothiazide ND 79128734204 25 MG Orally Act hans 1 tablet Once a day Novolin 70/30 PenFill NDC 0 70/30 sub Q Active 50 units Twice a day Blood Glucose Monitor ND 0 as directed Dec Activ e as directed Test BS three 13, (DISPENSE times daily 2018 BLOOD GLUCOSE MONITOR FORMULARY TO INSURANCE) Insulin Syringes ND 0 U-100 1 ML Dec Active as d irected (Disposable) subcutaneous 13, as directed 2018 with Novolin 70/30 BID Metformin HCl ND 34174061384 500 MG Orally Active 2 tablet Twice a day with meals Results Name Result Date Reference Range Unit Abnormali ty Flag Novel Coronavirus (COVID-19), FAIZA Summary Purpose eClinicalWorks Submission
[2020-07-31] MEDS ORDERED: HYDROCODONE/APAP 7.5/325 MG TAB ONE (13:18)
--- NOTE | 2020-07-31 13:49 | RAD REPORT ---
EXAM DESCRIPTION: Deangelo Single View07/31/2020 1:32 pm CLINICAL HISTORY: Chest pain COMPARISON: 2016 FINDINGS: The lungs appear clear of acute infiltrate. The heart is normal size IMPRESSION: No acute abnormalities displayed
--- NOTE | 2020-07-31 13:51 | RAD REPORT ---
EXAM DESCRIPTION: RAD - Wrist Left 3 View - 07/31/2020 1:32 pm CLINICAL HISTORY: Left wrist pain status post injury FINDINGS: No fracture or dislocation is seen. Bones are osteoporotic If the patient continues to have symptoms to suggest an occult fracture then a followup plain film se zabrina in 7 days would be recommended
--- NOTE | 2020-07-31 13:53 | RAD REPORT ---
EXAM DESCRIPTION: RAD - Knee Right 3 View - 07/31/2020 1:32 pm CLINICAL HISTORY: Right knee pain status post injury FINDINGS: No fracture or dislocation is seen. Soft tissue swelling Marked osteoarthritis medial compartment If patient continues have symptoms to suggest an occult fracture, ligamentous or meniscal injury MRI would recommended
--- NOTE | 2020-07-31 14:00 | ER ---
Nurse's Notes [facility] Name: Kath Harrison Age: 70 yrs Sex: Female : 1950 Arrival Date: 07/31/2020 Time: 11:27 Bed 6 Private MD: Elaine Sandoval Diagnosis: Contusion of right knee;Contusion of left wrist;Contusion of front wall of thorax;Fall on same level from slipping, tripping and stumbling Presentation: 07/31 11:37 Chief complaint: Patient states: tripped and fell yesterday, c/o left hand pain, right jl7 knee pain and chest feels sore when taking a breath in and on palpation. Coronavirus screen: Client denies travel out of the [place] in the last 14 days. At this time, the client does not indicate any symptoms associated with coronavirus-19. Ebola Screen: No symptoms or risks identified at this time. Initial Sepsis Screen: Does the patient meet any 2 criteria? No. Patient's initial sepsis screen is negative. Does the patient have a suspected source of infection? No. Patient's initial sepsis screen is negative. Risk Assessment: Do you want to hurt yourself or someone else? Patient reports no desire to harm self or others. Onset of symptoms was July 28, 2020. Care prior to arrival: None. 11:37 Method Of Arrival: Ambulatory jl7 11:37 Acuity: ZULEIMA 4 jl7 Triage Assessment: 11:39 General: Appears in no apparent distress. uncomfortable, Behavior is calm, cooperative, jl7 appropriate for age. Pain: Complains of pain in chest, left hand and right knee. Historical: - Allergies: 11:39 No Known Allergies; jl7 - PMHx: 11:39 Diabetes - IDDM; Hyperlipidemia; Hypertension; jl7 - Immunization history:: Adult Immunizations up to date. - Social history:: Smoking status: Patient denies any tobacco usage or history of. Screenin:49 Abuse screen: Denies threats or abuse. Denies injuries from another. Nutritional iw screening: No deficits noted. Tuberculosis screening: No symptoms or risk factors identified. Fall Risk Fall in past 12 months (25 points). Assessment: 11:47 General: Appears in no apparent distress. Behavior is calm, cooperative. Pain: iw Complains of pain in mid-sternal area. Pain: Complains of pain in right hand and chest and right knee. Neuro: Level of Consciousness is awake, alert, obeys commands, Oriented to person, place, time, situation, Moves all extremities. Cardiovascular: Patient's skin is warm and dry. Respiratory: Respiratory effort is even, unlabored, Respiratory pattern is regular, symmetrical. Derm: Skin is intact, Skin is Skin is normal. Injury Description: Bruise sustained to right knee. 12:49 Reassessment: Patient appears in no apparent distress at this time. Patient and/or iw family updated on plan of care and expected duration. Pain level reassessed. Patient is alert, oriented x 3, equal unlabored respirations, skin warm/dry/pink. pt repositioned in bed, pillow given, pt requesting pain medication. Vital Signs: 11:37 BP 143 / 62; Pulse 68; Resp 19; Temp 97.2; Pulse Ox 95% ; Weight 120.2 kg; Pain 7/10; jl7 12:51 BP 130 / 54; Pulse 70; Resp 16; Pulse Ox 98% on R/A; iw ED Course: 11:27 Patient arrived in ED. ag5 11:28 Elaine Sandoval MD is Private Physician. ag5 11:39 Triage completed. jl7 11:39 Arm band placed on right wrist. jl7 11:42 Kayleigh Berger, JUD is Primary Nurse. iw 11:52 [facility]C [facility] kb 11:52 Stone Hargrove MD is Attending Physician. kb 11:56 Patient has correct armband on for positive identification. iw 13:32 Knee Right 3 View XRAY In Process Unspecified. EDMS 13:32 Wrist Left (3 View) XRAY In Process Unspecified. EDMS 13:32 Chest Single View XRAY In Process Unspecified. EDMS 14:28 No provider procedures requiring assistance completed. Patient did not have IV access iw during this emergency room visit. Administered Medications: 13:07 Drug: [place] (7.5 mg-325 mg) 1 tabs Route: PO; iw Outcome: 13:59 Discharge ordered by . kb 14:28 Discharged to home via wheelchair. iw 14:28 Condition: good 14:28 Discharge instructions given to patient, Instructed on discharge instructions, follow up and referral plans. medication usage, Demonstrated understanding of instructions, follow-up care, medications, Prescriptions given X 2. 14:29 Patient left the ED. ss Signatures: Dispatcher [employer] EDJudie Grady, LISW-C LISW-Kayleigh Jones, RN Sabrina Salter RN RN ss Leal, Jahala, RN RN jl7 Eliu Deluca [facility]
--- NOTE | 2020-07-31 14:01 | EDPHYS ---
Physician Documentation [facility] Name: Kath Harrison Age: 70 yrs Sex: Female : 1950 Arrival Date: 07/31/2020 Time: 11:27 Bed 6 Private MD: Elaine Sandoval ED Physician Stone Hargrove HPI: 07/31 14:27 This 70 yrs old Female presents to ER via Ambulatory with complaints of Fall kb Injury, Knee Pain, Hand Pain, Chest Pain. 14:27 Details of fall: The patient fell from an upright position, while walking. kb 14:27 Onset: The symptoms/episode began/occurred yesterday. Associated injuries: The patient kb sustained injury to the chest, specifically the mid-sternal area, pain with breathing, pain with movement, tenderness, right knee, contusion, ecchymosis, painful injury, swelling, left wrist, contusion, ecchymosis, painful injury, swelling. Severity of symptoms: At their worst the symptoms were moderate, in the emergency department the symptoms are unchanged. The patient has not experienced similar symptoms in the past. The patient has not recently seen a physician. Pt reports she tripped and fell yesterday. c/o pain to chest, right knee and left wrist. Historical: - Allergies: 11:39 No Known Allergies; jl7 - PMHx: 11:39 Diabetes - IDDM; Hyperlipidemia; Hypertension; jl7 - Immunization history:: Adult Immunizations up to date. - Social history:: Smoking status: Patient denies any tobacco usage or history of. ROS: 14:27 Constitutional: Negative for fever, chills, and weight loss, Respiratory: Negative for kb shortness of breath, cough, wheezing, and pleuritic chest pain, Abdomen/GI: Negative for abdominal pain, nausea, vomiting, diarrhea, and constipation, Back: Negative for injury and pain, Skin: Negative for injury, rash, and discoloration, Neuro: Negative for headache, weakness, numbness, tingling, and seizure. 14:27 Cardiovascular: Positive for chest pain, with cough, with movement, Negative for edema, orthopnea, palpitations, paroxysmal nocturnal dyspnea. 14:27 MS/extremity: Positive for contusion, pain, swelling, tenderness, of the left wrist and right knee. Exam: 14:27 Constitutional: This is a well developed, well nourished patient who is awake, alert, kb and in no acute distress. Head/Face: Normocephalic, atraumatic. Cardiovascular: Regular rate and rhythm with a normal S1 and S2. No gallops, murmurs, or rubs. Normal PMI, no JVD. No pulse deficits. Respiratory: Lungs have equal breath sounds bilaterally, clear to auscultation and percussion. No rales, rhonchi or wheezes noted. No increased work of breathing, no retractions or nasal flaring. Abdomen/GI: Soft, non-tender, with normal bowel sounds. No distension or tympany. No guarding or rebound. No evidence of tenderness throughout. Neuro: Awake and alert, GCS 15, oriented to person, place, time, and situation. Cranial nerves II-XII grossly intact. Motor strength 5/5 in all extremities. Sensory grossly intact. Cerebellar exam normal. Normal gait. 14:27 Chest/axilla: Inspection: normal, Palpation: tenderness, that is moderate, of the mid-sternal area, that totally reproduces the patient's complaints. 14:27 Musculoskeletal/extremity: Extremities: grossly normal except: noted in the right knee: contusion, ecchymosis, pain, swelling, tenderness, noted in the left wrist: contusion, ecchymosis, pain, swelling, tenderness. Vital Signs: 11:37 BP 143 / 62; Pulse 68; Resp 19; Temp 97.2; Pulse Ox 95% ; Weight 120.2 kg; Pain 7/10; jl7 12:51 BP 130 / 54; Pulse 70; Resp 16; Pulse Ox 98% on R/A; iw MDM: 11:52 Patient medically screened. kb 13:56 Data reviewed: vital signs, nurses notes. Data interpreted: Pulse oximetry: on room air kb is 98 %. Interpretation: normal. Counseling: I had a detailed discussion with the patient and/or guardian regarding: the historical points, exam findings, and any diagnostic results supporting the discharge/admit diagnosis, radiology results, the need for outpatient follow up, a family practitioner, to return to the emergency department if symptoms worsen or persist or if there are any questions or concerns that arise at home. 07/31 11:56 Order name: Knee Right 3 View XRAY; Complete Time: 13:56 kb 07/31 11:56 Order name: Wrist Left (3 View) XRAY; Complete Time: 13:53 kb 07/31 11:56 Order name: Chest Single View XRAY; Complete Time: 13:53 kb Administered Medications: 13:07 Drug: Bellevue (7.5 mg-325 mg) 1 tabs Route: PO; iw Disposition: 08/01 13:51 Co-signature as Attending Physician, Stone Hargrove MD I agree with the assessment and clay plan of care. Disposition: 07/31/20 13:59 Discharged to Home. Impression: Contusion of right knee, Contusion of left wrist, Contusion of front wall of thorax, Fall on same level from slipping, tripping and stumbling. - Condition is Stable. - Discharge Instructions: Musculoskeletal Pain, Contusion, [id number], Fall Prevention in the Home, [id number]. - Prescriptions for Cyclobenzaprine 10 mg Oral Tablet - take 1 tablet by ORAL route every 8 hours As needed; 21 tablet. Diclofenac Sodium 75 mg Oral Tablet, Delayed Release (E.C.) - take 1 tablet by ORAL route 2 times per day As needed; 30 tablet. - Medication Reconciliation Form, Thank You Letter, Antibiotic Education, Prescription Opioid Use form. - Follow up: Emergency Department; When: As needed; Reason: Worsening of condition. Follow up: Private Physician; When: 2 - 3 days; Reason: Recheck today's complaints, Continuance of care, Re-evaluation by your physician. Signatures: Dispatcher [employer] EDJudie Grady, MACHINE UMBRELLA TIPPER-C MACHINE UMBRELLA TIPPER-Stone Gandhi MD MD cha Williams, Irene, RN RN Sabrina Rivers RN RN ss Leal, Jahala, RN RN jl7 Corrections: (The following items were deleted from the chart) 07/31 14:00 13:59 07/31/2020 13:59 Discharged to Home. Impression: Contusion of right knee; kb Contusion of left wrist; Contusion of front wall of thorax. Condition is Stable. Forms are Medication Reconciliation Form, Thank You Letter, Antibiotic Education, Prescription Opioid Use. Follow up: Emergency Department; When: As needed; Reason: Worsening of condition. Follow up: Private Physician; When: 2 - 3 days; Reason: Recheck today's complaints, Continuance of care, Re-evaluation by your physician. kb 14:29 14:00 07/31/2020 13:59 Discharged to Home. Impression: Contusion of right knee; ss Contusion of left wrist; Contusion of front wall of thorax; Fall on same level from slipping, tripping and stumbling. Condition is Stable. Forms are Medication Reconciliation Form, Thank You Letter, Antibiotic Education, Prescription Opioid Use. Follow up: Emergency Department; When: As needed; Reason: Worsening of condition. Follow up: Private Physician; When: 2 - 3 days; Reason: Recheck today's complaints, Continuance of care, Re-evaluation by your physician. kb
[2020-07-31 14:59] VITALS: TEMP 97.2
[2020-07-31 15:00] VITALS: BP 130/54; O2SAT 98
== END 2020-07-31 14:29 | disposition home or self-care (01) ==
LOC: ER 11:25
DX: S20.219A Contusion of unspecified front wall of thorax, initial encounter (principal); S80.01XA Contusion of right knee, initial encounter; S60.212A Contusion of left wrist, initial encounter; W01.0XXA Fall on same level from slipping, tripping and stumbling without subsequent striking against object, initial encounter; Y93.01 Activity, walking, marching and hiking; Y92.9 Unspecified place or not applicable; I10 Essential (primary) hypertension
CPT/HCPCS: 71045; 99283